=== PATIENT | female | born 1955 | race African-American/Black ===

== ENCOUNTER 2017-10-08 18:10 | Inpatient (IN) | payer MEDICARE, OTHER ==
--- NOTE | 2017-10-08 18:32 | ED Physician Chart ---
ED Chief Complaint/HPI - Patient Information Date Seen:: 10/08/17 Time Seen:: 18:10 Chief Complaint:: increasing confusion and agitation History of Present Illness:: Patient sent from her care facility for increasing agitation and confusion. Allergies:: Allergies Allergy/AdvReac Type Severity Reaction Status Date / Time No Known Allergies Allergy Verified 02/28/17 16:15 Historian:: Patient Review:: Transfer documents Reviewed ED Review of Systems - Review of Systems General/Constitutional: No fever Skin: No skin lesions Head: No headache Eyes: No loss of vision ENT: No earache Neck: No neck pain Cardio Vascular: No chest pain Pulmonary: No SOB GI: No nausea, No vomiting G/U: No dysuria Musculoskeletal: No bone or joint pain Endocrine: No polyuria, No polydipsia Psychiatric: Prior psych history Hematopoietic: No bruising Allergic/Immuno: No urticaria Neurological: No syncope ED Past Medical History - Past Medical History Past Medical History: DM, Other (lupus; insomnia; hyperlipidemia; psychosis; dysphagia; schizophrenia; major depression; transient fracture hands; anxiety; bilateral below-knee amputations) Family History: None Social History: Non Smoker, No Alcohol Surgical History: other (bilateral below-knee amputation) Psychiatricy History: Depression, Schizophrenia Medication: Reviewed Family Medical History - Family Member Mother History Unknown: Yes ED Physical Exam - Physical Examination General/Constitutional: Well-developed, well-nourished, Alert, No distress Head: Atraumatic Eyes: Lids, conjuctiva normal, PERRL Skin: Nl inspection, No rash ENMT: External ears, nose nl Other ENMT comments:: Edentulous with upper dentures Neck: No nuchal rigidity Respiratory: Nl effort/Exclusion, Clear to Auscultation Cardio Vascular: RRR GI: No tenderness/rebounding/guarding, No organomegaly : No CVA tenderness Other Extremities comments:: Bilateral below-knee amputations; contracture both hands Neuro/Psych: Alert/oriented ED Labs/Radiology/EKG Results - EKG Interpretations EKG Time:: 18:35
[2017-10-08 18:58] LABS: ALB/GLOB RATIO 1.2 (1.0-1.8); ALBUMIN 4.1 gm/dL (3.7-5.3); ALKALINE PHOSPHATASE 69 U/L (34-104); ANION GAP 14.3 (7.0-16.0); BILIRUBIN,TOTAL 0.3 mg/dL (0.3-1.0); BUN - UREA NITROGEN 13 mg/dL (7-25); CALCIUM SERUM 9.3 mg/dL (8.6-10.3); CARBON DIOXIDE 25.6 mEq/L (21.0-31.0); CHLORIDE 98 mEq/L (98-107); CHOLESTEROL 139 mg/dL (<200); CREATININE - SERUM 0.6 mg/dL (0.6-1.2); GFR AFRICAN-AMERICAN > 60.0 ml/min (>90); GFR NON AFRICAN-AMERICAN > 60.0 ml/min; GLUCOSE 92 mg/dL (70-105); HDL -HIGH DENSITY LIPOPROTEIN 62 mg/dL (23-92); POTASSIUM SERUM 3.9 mEq/L (3.5-5.1); SGOT 16 U/L (13-39); SGPT/ALT 11 U/L (7-52); SODIUM SERUM 134 mEq/L (136-145); TOTAL PROTEIN,SERUM 7.5 gm/dL (6.0-8.3); TRIGLYCERIDES 67 mg/dL (<150)
[2017-10-08 19:12] LABS: HEMATOCRIT 46.7 % (41.0-60); HEMOGLOBIN 14.7 gm/dL (12-16); MEAN CELL VOLUME 85.7 fl (81-100); MEAN CORPUSCULAR HEMOGLOBIN 26.9 pg (27.0-31.0); MEAN CORPUSCULAR HGB CONC 31.4 pg (28.0-36.0); PLATELET COUNT 357 Th/cmm (150-400); RED BLOOD COUNT 5.45 Mil/cmm (3.80-5.10); RED CELL DISTRIBUTION WIDTH 14.2 % (11.5-20.0); WHITE BLOOD COUNT 5.9 Th/cmm (4.8-10.8)
[2017-10-08 19:13] LABS: % BASOPHILS 0.7 % (0.0-2.0); % EOSINOPHILS 2.5 % (0.0-5.0); % LYMPHOCYTES 32.5 % (20.0-50.0); % MONOCYTES 13.9 % (2.0-10.0); % NEUTROPHILS 50.4 % (40.0-80.0); EOSINOPHILE ABSOLUTE 0.1 Th/cmm (0.1-0.4); LYMPHOCYTE ABSOLUTE 1.9 Th/cmm (1.5-3.0); MONOCYTE ABSOLUTE 0.8 Th/cmm (0.3-1.0); NEUTROPHILE ABSOLUTE 3.1 Th/cmm (1.8-8.0)
[2017-10-08 21:43] VITALS: BP 132/78
[2017-10-08] MEDS ORDERED: Magnesium Hydroxide (MOM) 30 mL UDC PO PRN ×2 (21:43→21:48)
[2017-10-08] MEDS ORDERED: Maalox 30 mL Cup PO PRN (21:43)
--- NOTE | 2017-10-09 09:14 | History and Physical ---
History of Present Illness - HPI Vital Signs: Last Vital Signs Temp 97.8 F 10/09/17 06:50 Pulse 69 10/09/17 06:50 Resp 18 10/09/17 06:50 BP 117/65 10/09/17 06:50 Pulse Ox 98 10/09/17 06:50 Family Medical History - Family Member Mother History Unknown: Yes - Medications Home Medications: Home Medication Medication Instructions Recorded Type Divalproex Sprinkle [Depakote 500 mg PO DAILY 02/28/17 History Sprinkle] Aspirin [Aspirin Chewable] 81 mg PO DAILY ctb 03/17/17 Rx Calcium Carbonate [Os-Kennedy] 500 mg PO TID tab 03/17/17 Rx Cholecalciferol (Vit D3) [Vitamin 5,000 iu PO DAILY tab 03/17/17 Rx D3] Divalproex Sprinkle [Depakote 500 mg PO BID ecc 03/17/17 Rx Sprinkle] Docusate Sodium [Colace] 250 mg PO DAILY sgl 03/17/17 Rx Insulin Detemir [Levemir Insulin] 29 units SUBQ QAM vial 03/17/17 Rx Lisinopril [Zestril] 40 mg PO DAILY tab 03/17/17 Rx Magnesium Hydroxide [Milk of 30 ml PO DAILY PRN udc 03/17/17 Rx Magnesia] Multivitamin [Theragran] 1 tab PO DAILY tab 03/17/17 Rx NIFEdipine [Procardia Xl] [address] 03/17/17 Rx Polyvinyl Alcohol Ophth Soln 1 drop EACH EYE BID 03/17/17 Rx [Artificial Tears Ophth Soln*] Simvastatin [Zocor] 40 mg PO QPM tab 03/17/17 Rx azaTHIOprine [Imuran] 50 mg PO DAILY tab 03/17/17 Rx metFORMIN [Glucophage] 850 mg PO TID tab 03/17/17 Rx risperiDONE [RisperDAL] 0.75 mg PO BID tab 03/17/17 Rx traZODone HCl [Desyrel*] 100 mg PO HS tab 03/17/17 Rx - Allergies Allergies/Adverse Reactions: Allergies Allergy/AdvReac Type Severity Reaction Status Date / Time No Known Allergies Allergy Verified 02/28/17 16:15 - Lab Results All Lab Results last 24 hours: Laboratory Results - last 24 hr 10/09/17 05:58 POC Glucose 92
[2017-10-09] MEDS: INSULIN ASPART SLIDING SCALE 100 UNITS/ML UNIT SUBQ SCH ×4 (10:00→21:44)
[2017-10-09] MEDS: Aspirin 81mg Chewable Tab PO SCH (10:00)
[2017-10-09] MEDS: Insulin Detemir 100 units/mL 10mL Vial SUBQ SCH (10:00)
[2017-10-09] MEDS: Multivitamin Tab PO SCH (10:00)
[2017-10-09] MEDS: NIFEdipine 30 mg ER Tab PO SCH ×2 (11:05→14:36)
[2017-10-09] MEDS: Polyvinyl Alcohol Ophth Soln 15 mL Bottle EACH EYE SCH ×2 (14:30→18:11)
--- NOTE | 2017-10-09 21:41 | History and Physical ---
History of Present Illness - HPI Chief Complaint: agitation HPI: This is 62 yr old female who is a alf resident admitted to the [facility] unit for agitation towards snf staff. Vital Signs: Last Vital Signs Temp 97.4 F 10/09/17 14:52 Pulse 72 10/09/17 14:52 Resp 20 10/09/17 14:52 BP 119/76 10/09/17 14:52 Pulse Ox 97 10/09/17 14:52 Past Medical History Other History: DM, lupus; insomnia; hyperlipidemia; psychosis; dysphagia; schizophrenia; major depression; transient fracture hands; anxiety; bilateral below-knee amputations - Past Surgical History Past Surgical History: Other (bka) Family Medical History - Family Member Mother History Unknown: Yes Social History Smoke: No Alcohol: None Drugs: None Lives: Snf - Medications Home Medications: Home Medication Medication Instructions Recorded Type Divalproex Sprinkle [Depakote 500 mg PO DAILY 02/28/17 History Sprinkle] Aspirin [Aspirin Chewable] 81 mg PO DAILY ctb 03/17/17 Rx Calcium Carbonate [Os-Kennedy] 500 mg PO TID tab 03/17/17 Rx Cholecalciferol (Vit D3) [Vitamin 5,000 iu PO DAILY tab 03/17/17 Rx D3] Divalproex Sprinkle [Depakote 500 mg PO BID ecc 03/17/17 Rx Sprinkle] Docusate Sodium [Colace] 250 mg PO DAILY sgl 03/17/17 Rx Insulin Detemir [Levemir Insulin] 29 units SUBQ QAM vial 03/17/17 Rx Lisinopril [Zestril] 40 mg PO DAILY tab 03/17/17 Rx Magnesium Hydroxide [Milk of 30 ml PO DAILY PRN udc 03/17/17 Rx Magnesia] Multivitamin [Theragran] 1 tab PO DAILY tab 03/17/17 Rx NIFEdipine [Procardia Xl] [address] 03/17/17 Rx Polyvinyl Alcohol Ophth Soln 1 drop EACH EYE BID 03/17/17 Rx [Artificial Tears Ophth Soln*] Simvastatin [Zocor] 40 mg PO QPM tab 03/17/17 Rx azaTHIOprine [Imuran] 50 mg PO DAILY tab 03/17/17 Rx metFORMIN [Glucophage] 850 mg PO TID tab 03/17/17 Rx risperiDONE [RisperDAL] 0.75 mg PO BID tab 03/17/17 Rx traZODone HCl [Desyrel*] 100 mg PO HS tab 03/17/17 Rx - Allergies Allergies/Adverse Reactions: Allergies Allergy/AdvReac Type Severity Reaction Status Date / Time No Known Allergies Allergy Verified 02/28/17 16:15 Review of Systems - Review of Systems Constitutional: Report: No Significant Eyes: Report: No Significant ENT: Report: No Significant Respiratory: Report: No Significant Cardiovascular: Report: No Significant Gastrointestinal: Report: No Significant Genitourinary: Report: No Significant Musculoskeletal: Report: No Significant Skin: Report: No Significant Neurological: Report: No Significant Physical Exam - Physical Exam HEENT: Report: Ears Nose Throat within normal limits Neck: Report: Within normal limits Cardiovascular Systems: Report: +s1/s2 noted Respiratory: Report: Breath Sounds are within normal limits Abdomen: Report: Non-tender to palpation Back: Report: Inspection of back is within normal limits. Extremities: Report: Non-tender to palpation. Skin: Report: Color of skin is within normal limits Neuro/Psych: Report: Mood affect is within normal limits - Lab Results All Lab Results last 24 hours: Laboratory Results - last 24 hr 10/09/17 10/09/17 05:58 12:18 POC Glucose 92 117 H - Assessment Assessment: DM,lupus; insomnia; hyperlipidemia; psychosis; dysphagia; schizophrenia; major depression; transient fracture hands; anxiety; bilateral below-knee amputations - Plan Plan: monitor glucose safety precuations continue current orders
--- NOTE | 2017-10-10 01:50 | Psychosocial Evaluation ---
DATE OF SERVICE: PSYCHIATRIC INITIAL EVALUATION AND MENTAL STATUS EXAM PATIENT'S AGE: 62. SEX: Female. PHYSICIAN: Rhina Dalton M.D., M.P.H. CHIEF COMPLAINT: Agitation and irritability. HISTORY OF PRESENT ILLNESS: The patient is a 62-year-old female with history of what seems to be schizoaffective disorder. The patient has been agitated and irritable in [facility]. She has not been able to follow directions and aggressive and agitated with the staff and also confused that she was transferred to the hospital. Chart reviewed and patient interviewed and discussed the patient's condition with the staff and reviewed records and labs. The patient is anxious. The patient also is confused. When I asked her about where she lives, "I live here." She also was rambling and she was not able to give me any coherent answers. She also was suspicious and paranoid and confused. PAST PSYCHIATRIC HISTORY: The patient has history of what seems to be schizoaffective disorder. The patient has been taking Depakote and Risperdal. PAST MEDICAL HISTORY: The patient is diabetic. SOCIAL HISTORY: The patient said that she is single, never and has no children. No known alcohol or street drug use. in [facility]. ALLERGIES: No known allergies. MENTAL STATUS EXAMINATION: The patient appears older than her stated age. Disheveled. Irritable mood. Flat affect. Thought processes are circumstantial and tangential with flight of ideas. The patient did not answer question regarding hallucinations or delusions, but she seems to be preoccupied and paranoid. The patient did not answer question regarding suicide or homicide. The patient is alert, but disoriented to time, place, person and situation. Impaired immediate and recent memory, but intact remote memory and she did remember her date. Poor insight and poor judgment. ASSESSMENT: PRIMARY DIAGNOSES: Schizoaffective disorder, mixed type, severe, with psychotic features. SECONDARY DIAGNOSES: Dementia, moderate to severe, with psychosis. TREATMENT PLAN: We will monitor the patient's behavior closely. We will continue Depakote and Seroquel and will adjust the dose. ESTIMATED LENGTH OF STAY: 5-7 days. THE PATIENT'S STRENGTHS AND WEAKNESSES: The patient's strength is not clear at this time. Weakness is her ineffective coping and poor judgment. AFTER DISCHARGE PLAN: Outpatient treatment and followup will continue as an outpatient. The patient also will return to [facility]. CRITERIA FOR DISCHARGE: The patient will not be suicidal and will stabilize psychotropic medications and will establish outpatient treatment plans. [facility]# [id number]
[2017-10-10] MEDS: INSULIN ASPART SLIDING SCALE 100 UNITS/ML UNIT SUBQ SCH ×4 (06:34→20:46)
[2017-10-10] MEDS: NIFEdipine 30 mg ER Tab PO SCH (09:51)
[2017-10-10] MEDS: Polyvinyl Alcohol Ophth Soln 15 mL Bottle EACH EYE SCH ×2 (09:51→17:17)
[2017-10-10] MEDS: Insulin Detemir 100 units/mL 10mL Vial SUBQ SCH (09:53)
[2017-10-10] MEDS: Aspirin 81mg Chewable Tab PO SCH (09:53)
[2017-10-10] MEDS: Multivitamin Tab PO SCH (09:53)
--- NOTE | 2017-10-10 20:06 | Progress Notes ---
DATE: Chart reviewed and the patient interviewed. Also discussed the patient's condition with the staff and reviewed records and labs. The patient continued to be extremely irritable and extremely agitated. The patient also is laughing and talking to herself. She also is delusional thinking that her money is coming to the facility and also her belongings ended "going home." She also is restless and her interaction with others is minimum. The patient also is suspicious and is paranoid. Otherwise, the patient is cooperative with her treatment and taking her medications. The patient did not sleep much last night and according to staff, she only slept 2 hours. During interview, the patient is disheveled. She is also suspicious and paranoid. TREATMENT PLAN: We will continue monitoring her behavior closely. Also, we will discontinue Risperdal and we will start the patient on Seroquel and we will monitor the dose. Also, we will continue to monitor her behavior closely. LABORATORY DATA: No new labs available, but we will monitor Depakote blood level. JOB# [id number]
--- NOTE | 2017-10-10 22:32 | Internal Medicine Prog Note ---
Internal Medicine Subjective - Subjective Service Date: 10/10/17 Patient seen and examined:: with staff Patient is:: awake Per staff patient has:: no adverse event, tolerating meds Internal Medicine Objective - Results Result Diagrams: 10/08/17 18:33 10/08/17 18:33 Recent Labs: Laboratory Last Values WBC 5.9 Th/cmm (4.8-10.8) D 10/08/17 18:33 RBC 5.45 Mil/cmm (3.80-5.10) H 10/08/17 18:33 Hgb 14.7 gm/dL (12-16) 10/08/17 18:33 Hct 46.7 % (41.0-60) 10/08/17 18:33 MCV 85.7 fl (81-100) 10/08/17 18:33 MCH 26.9 pg (27.0-31.0) L 10/08/17 18:33 MCHC Differential 31.4 pg (28.0-36.0) 10/08/17 18:33 RDW 14.2 % (11.5-20.0) 10/08/17 18:33 Plt Count 357 Th/cmm (150-400) 10/08/17 18:33 MPV 8.0 fl 10/08/17 18:33 Neutrophils % 50.4 % (40.0-80.0) 10/08/17 18:33 Lymphocytes % 32.5 % (20.0-50.0) 10/08/17 18:33 Monocytes % 13.9 % (2.0-10.0) H 10/08/17 18:33 Eosinophils % 2.5 % (0.0-5.0) 10/08/17 18:33 Basophils % 0.7 % (0.0-2.0) 10/08/17 18:33 Sodium 134 mEq/L (136-145) L 10/08/17 18:33 Potassium 3.9 mEq/L (3.5-5.1) 10/08/17 18:33 Chloride 98 mEq/L (98-107) 10/08/17 18:33 Carbon Dioxide 25.6 mEq/L (21.0-31.0) 10/08/17 18:33 Anion Gap 14.3 (7.0-16.0) 10/08/17 18:33 BUN 13 mg/dL (7-25) 10/08/17 18:33 Creatinine 0.6 mg/dL (0.6-1.2) 10/08/17 18:33 Est GFR ( Amer) > 60.0 ml/min (>90) 10/08/17 18:33 Est GFR (Non-Af Amer) > 60.0 ml/min 10/08/17 18:33 BUN/Creatinine Ratio 21.7 10/08/17 18:33 Glucose 92 mg/dL (70-105) 10/08/17 18:33 POC Glucose 75 MG/DL (70 - 105) 10/10/17 20:17 Calcium 9.3 mg/dL (8.6-10.3) 10/08/17 18:33 Total Bilirubin 0.3 mg/dL (0.3-1.0) 10/08/17 18:33 AST 16 U/L (13-39) 10/08/17 18:33 ALT 11 U/L (7-52) 10/08/17 18:33 Alkaline Phosphatase 69 U/L (34-104) 10/08/17 18:33 Total Protein 7.5 gm/dL (6.0-8.3) 10/08/17 18:33 Albumin 4.1 gm/dL (3.7-5.3) 10/08/17 18:33 Globulin 3.4 gm/dL 10/08/17 18:33 Albumin/Globulin Ratio 1.2 (1.0-1.8) 10/08/17 18:33 Triglycerides 67 mg/dL (<150) 10/08/17 18:33 Cholesterol 139 mg/dL (<200) 10/08/17 18:33 LDL Cholesterol Direct 75 mg/dL (75-193) 10/08/17 18:33 HDL Cholesterol 62 mg/dL (23-92) 10/08/17 18:33 TSH 1.23 uIU/ml (0.34-5.60) 10/08/17 18:33 RPR NONREACTIVE (NONREACTIVE) 10/08/17 18:33 - Physical Exam Vitals and I&O: Vital Signs Temp 97.9 F 10/10/17 21:44 Pulse 76 10/10/17 21:44 Resp 18 10/10/17 21:44 BP 129/76 12/29/17 21:44 Pulse Ox 97 10/10/17 14:00 Intake & Output 10/10/17 10/10/17 10/11/17 06:59 18:59 06:59 Intake Total 120 1200 120 Balance 120 1200 120 Intake: Oral 120 1200 120 Other: # Voids 3 3 1 Active Medications: Current Medications Al Hydrox/Mg Hydrox/Simethicone (Maalox) 30 ml PO Q6H PRN PRN Reason: Dyspepsia Stop: 12/07/17 21:42 Artificial Tears (Artificial Tears Ophth Soln) 1 drop EACH EYE BID [facility] Stop: 12/08/17 08:59 Last Admin: 10/10/17 17:17 Dose: 1 drop Aspirin (Aspirin Chewable) 81 mg PO DAILY [facility] Stop: 12/08/17 08:59 Last Admin: 10/10/17 09:53 Dose: 81 mg Calcium Carbonate (Os-Kennedy) 500 mg PO TID [facility] Stop: 12/08/17 08:59 Last Admin: 10/10/17 20:45 Dose: 500 mg Cholecalciferol (Vitamin D3) 2,000 iu PO DAILY [facility] Stop: 12/08/17 08:59 Last Admin: 10/10/17 09:52 Dose: 2,000 iu Divalproex Sodium (Depakote Sprinkle) 500 mg PO BID [facility] PRN Reason: Protocol Stop: 12/08/17 08:59 Last Admin: 10/10/17 17:17 Dose: 500 mg Docusate Sodium (Colace) 250 mg PO DAILY [facility] Stop: 12/08/17 08:59 Last Admin: 10/10/17 09:52 Dose: Not Given Insulin Aspart (Novolog Insulin Sliding Scale) 0 units SUBQ ACHS [facility] PRN Reason: Protocol Stop: 12/08/17 07:29 Last Admin: 10/10/17 20:46 Dose: Not Given Insulin Detemir (Levemir Insulin) 29 units SUBQ QAM [facility] PRN Reason: Protocol Stop: 12/08/17 08:59 Last Admin: 10/10/17 09:53 Dose: Not Given Lisinopril (Zestril) 40 mg PO DAILY [facility] Stop: 12/08/17 08:59 Last Admin: 10/10/17 09:52 Dose: 40 mg Lorazepam (Ativan) 1 mg PO Q6H PRN; Protocol PRN Reason: Anxiety/Agitation Stop: 12/07/17 21:42 Magnesium Hydroxide (Milk Of Magnesia) 30 ml PO DAILY PRN PRN Reason: GI DISTRESS Stop: 12/07/17 21:47 Metformin HCl (Glucophage) 850 mg PO TID [facility] Stop: 12/08/17 08:59 Last Admin: 10/10/17 20:44 Dose: 850 mg Multivitamins/Vitamin C (Theragran) 1 tab PO DAILY [facility] Stop: 12/08/17 08:59 Last Admin: 10/10/17 09:53 Dose: 1 tab Nifedipine (Procardia Xl) 60 mg PO DAILY [facility] Stop: 12/08/17 08:59 Last Admin: 10/10/17 09:51 Dose: 60 mg Quetiapine Fumarate (Seroquel) 25 mg PO BID [facility] PRN Reason: Protocol Stop: 12/09/17 08:59 Quetiapine Fumarate (Seroquel) 50 mg PO HS [facility] PRN Reason: Protocol Stop: 12/09/17 20:59 Simvastatin (Zocor) 40 mg PO QPM [facility] PRN Reason: Protocol Stop: 12/08/17 16:59 Last Admin: 10/10/17 17:17 Dose: 40 mg Trazodone HCl (Desyrel) 100 mg PO HS [facility] PRN Reason: Protocol Stop: 12/08/17 20:59 Last Admin: 10/10/17 20:45 Dose: 100 mg General: alert HEENT: NC/AT, PERRLA Neck: Supple Lungs: CTAB Extremities: excoriation Neurological: no change Internal Medicine Assmt/Plan - Assessment Assessment: DM,lupus; insomnia; hyperlipidemia; psychosis; dysphagia; schizophrenia; major depression; transient fracture hands; anxiety; bilateral below-knee amputations - Plan Plan: monitor glucose safety precuations continue current orders
[2017-10-11] MEDS: INSULIN ASPART SLIDING SCALE 100 UNITS/ML UNIT SUBQ SCH ×4 (06:49→20:28)
[2017-10-11] MEDS: Polyvinyl Alcohol Ophth Soln 15 mL Bottle EACH EYE SCH ×2 (08:22→16:42)
[2017-10-11] MEDS: NIFEdipine 30 mg ER Tab PO SCH (08:23)
[2017-10-11] MEDS: Aspirin 81mg Chewable Tab PO SCH (08:25)
[2017-10-11] MEDS: Multivitamin Tab PO SCH (08:25)
[2017-10-11] MEDS: Insulin Detemir 100 units/mL 10mL Vial SUBQ SCH (08:30)
--- NOTE | 2017-10-11 20:47 | Progress Notes ---
DATE: 10/11/2017 SUBJECTIVE: The patient is currently in the hospital, noted to be irritable, agitated, laughing to self, talking to self. The patient wants to go home earlier on her wheelchair. The patient believes that her money is coming to the family, demanding to leave right now. She originally presented to the hospital due to agitation and irritability. It seems that she was psychotic. Medications were reviewed including dosages and frequencies, sleeping, roller billet mill awakenings, appetite with prompting. ASSESSMENT: The patient remains symptomatic, not safe for a lower level of care, still with behavioral disturbances. PLAN: We will continue to monitor and make appropriate medication adjustments. [facility]# [id number]
[2017-10-12] MEDS: INSULIN ASPART SLIDING SCALE 100 UNITS/ML UNIT SUBQ SCH ×4 (07:00→20:12)
[2017-10-12] MEDS: Aspirin 81mg Chewable Tab PO SCH (08:33)
[2017-10-12] MEDS: Multivitamin Tab PO SCH (08:33)
[2017-10-12] MEDS: NIFEdipine 30 mg ER Tab PO SCH (08:35)
[2017-10-12] MEDS: Polyvinyl Alcohol Ophth Soln 15 mL Bottle EACH EYE SCH ×2 (08:42→18:00)
[2017-10-12] MEDS: Insulin Detemir 100 units/mL 10mL Vial SUBQ SCH (09:00)
--- NOTE | 2017-10-12 12:56 | General Progress Note ---
Subjective - Review of Systems Events since last encounter: patient still psychotic irritable Objective - Results Result Diagrams: 10/08/17 18:33 10/08/17 18:33 Recent Labs: Laboratory Last Values WBC 5.9 Th/cmm (4.8-10.8) D 10/08/17 18:33 RBC 5.45 Mil/cmm (3.80-5.10) H 10/08/17 18:33 Hgb 14.7 gm/dL (12-16) 10/08/17 18:33 Hct 46.7 % (41.0-60) 10/08/17 18:33 MCV 85.7 fl (81-100) 10/08/17 18:33 MCH 26.9 pg (27.0-31.0) L 10/08/17 18:33 MCHC Differential 31.4 pg (28.0-36.0) 10/08/17 18:33 RDW 14.2 % (11.5-20.0) 10/08/17 18:33 Plt Count 357 Th/cmm (150-400) 10/08/17 18:33 MPV 8.0 fl 10/08/17 18:33 Neutrophils % 50.4 % (40.0-80.0) 10/08/17 18:33 Lymphocytes % 32.5 % (20.0-50.0) 10/08/17 18:33 Monocytes % 13.9 % (2.0-10.0) H 10/08/17 18:33 Eosinophils % 2.5 % (0.0-5.0) 10/08/17 18:33 Basophils % 0.7 % (0.0-2.0) 10/08/17 18:33 Sodium 134 mEq/L (136-145) L 10/08/17 18:33 Potassium 3.9 mEq/L (3.5-5.1) 10/08/17 18:33 Chloride 98 mEq/L (98-107) 10/08/17 18:33 Carbon Dioxide 25.6 mEq/L (21.0-31.0) 10/08/17 18:33 Anion Gap 14.3 (7.0-16.0) 10/08/17 18:33 BUN 13 mg/dL (7-25) 10/08/17 18:33 Creatinine 0.6 mg/dL (0.6-1.2) 10/08/17 18:33 Est GFR ( Amer) > 60.0 ml/min (>90) 10/08/17 18:33 Est GFR (Non-Af Amer) > 60.0 ml/min 10/08/17 18:33 BUN/Creatinine Ratio 21.7 10/08/17 18:33 Glucose 92 mg/dL (70-105) 10/08/17 18:33 POC Glucose 66 MG/DL (70 - 105) L 10/12/17 06:15 Calcium 9.3 mg/dL (8.6-10.3) 10/08/17 18:33 Total Bilirubin 0.3 mg/dL (0.3-1.0) 10/08/17 18:33 AST 16 U/L (13-39) 10/08/17 18:33 ALT 11 U/L (7-52) 10/08/17 18:33 Alkaline Phosphatase 69 U/L (34-104) 10/08/17 18:33 Total Protein 7.5 gm/dL (6.0-8.3) 10/08/17 18:33 Albumin 4.1 gm/dL (3.7-5.3) 10/08/17 18:33 Globulin 3.4 gm/dL 10/08/17 18:33 Albumin/Globulin Ratio 1.2 (1.0-1.8) 10/08/17 18:33 Triglycerides 67 mg/dL (<150) 10/08/17 18:33 Cholesterol 139 mg/dL (<200) 10/08/17 18:33 LDL Cholesterol Direct 75 mg/dL (75-193) 10/08/17 18:33 HDL Cholesterol 62 mg/dL (23-92) 10/08/17 18:33 TSH 1.23 uIU/ml (0.34-5.60) 10/08/17 18:33 RPR NONREACTIVE (NONREACTIVE) 10/08/17 18:33 - Physical Exam Vitals and I&O: Vital Signs Temp 97.9 F 10/12/17 06:34 Pulse 77 10/12/17 08:35 Resp 18 10/12/17 06:34 BP 125/76 10/12/17 08:35 Pulse Ox 98 10/12/17 06:34 Intake & Output 10/11/17 10/12/17 10/12/17 18:59 06:59 18:59 Intake Total 1600 120 Balance 1600 120 Intake: Oral 1600 120 Other: # Voids 4 3 # Bowel Movements 0 Stool Characteristics Soft Active Medications: Current Medications Al Hydrox/Mg Hydrox/Simethicone (Maalox) 30 ml PO Q6H PRN PRN Reason: Dyspepsia Stop: 12/07/17 21:42 Artificial Tears (Artificial Tears Ophth Soln) 1 drop EACH EYE BID [facility] Stop: 12/08/17 08:59 Last Admin: 10/12/17 08:42 Dose: Not Given Aspirin (Aspirin Chewable) 81 mg PO DAILY [facility] Stop: 12/08/17 08:59 Last Admin: 10/12/17 08:33 Dose: 81 mg Calcium Carbonate (Os-Kennedy) 500 mg PO TID [facility] Stop: 12/08/17 08:59 Last Admin: 10/12/17 08:34 Dose: 500 mg Cholecalciferol (Vitamin D3) 2,000 iu PO DAILY [facility] Stop: 12/08/17 08:59 Last Admin: 10/12/17 08:34 Dose: 2,000 iu Divalproex Sodium (Depakote Sprinkle) 500 mg PO BID [facility] PRN Reason: Protocol Stop: 12/08/17 08:59 Last Admin: 10/12/17 08:33 Dose: Not Given Docusate Sodium (Colace) 250 mg PO DAILY [facility] Stop: 12/08/17 08:59 Last Admin: 10/12/17 08:33 Dose: Not Given Insulin Aspart (Novolog Insulin Sliding Scale) 0 units SUBQ ACHS [facility] PRN Reason: Protocol Stop: 12/08/17 07:29 Last Admin: 10/12/17 11:39 Dose: 2 units Insulin Detemir (Levemir Insulin) 29 units SUBQ QAM [facility] PRN Reason: Protocol Stop: 12/08/17 08:59 Last Admin: 10/11/17 08:30 Dose: Not Given Lisinopril (Zestril) 40 mg PO DAILY [facility] Stop: 12/08/17 08:59 Last Admin: 10/12/17 08:34 Dose: 40 mg Lorazepam (Ativan) 1 mg PO Q6H PRN; Protocol PRN Reason: Anxiety/Agitation Stop: 12/07/17 21:42 Magnesium Hydroxide (Milk Of Magnesia) 30 ml PO DAILY PRN PRN Reason: GI DISTRESS Stop: 12/07/17 21:47 Metformin HCl (Glucophage) 850 mg PO TID [facility] Stop: 12/08/17 08:59 Last Admin: 10/12/17 08:33 Dose: Not Given Multivitamins/Vitamin C (Theragran) 1 tab PO DAILY [facility] Stop: 12/08/17 08:59 Last Admin: 10/12/17 08:33 Dose: 1 tab Nifedipine (Procardia Xl) 60 mg PO DAILY [facility] Stop: 12/08/17 08:59 Last Admin: 10/12/17 08:35 Dose: 60 mg Quetiapine Fumarate (Seroquel) 25 mg PO BID [facility] PRN Reason: Protocol Stop: 12/09/17 08:59 Last Admin: 10/12/17 08:33 Dose: 25 mg Quetiapine Fumarate (Seroquel) 50 mg PO HS [facility] PRN Reason: Protocol Stop: 12/09/17 20:59 Last Admin: 10/11/17 20:25 Dose: 50 mg Simvastatin (Zocor) 40 mg PO QPM [facility] PRN Reason: Protocol Stop: 12/08/17 16:59 Last Admin: 10/11/17 16:13 Dose: 40 mg Trazodone HCl (Desyrel) 100 mg PO HS [facility] PRN Reason: Protocol Stop: 12/08/17 20:59 Last Admin: 10/11/17 20:27 Dose: 100 mg
--- NOTE | 2017-10-12 18:02 | Progress Notes ---
DATE: 10/11/2017 SUBJECTIVE: The patient was seen in her room lying in bed. The patient is a poor historian due to medical condition. The patient appears to be guarded at this time. Otherwise, appears to be in no acute distress. OBJECTIVE: VITAL SIGNS: Temperature 97.2, heart rate 89, blood pressure 113/52, respirations 18, 97% on room air. HEENT: Head is atraumatic and normocephalic. Eyes: Bilateral conjunctivae are clear. Bilateral pupils are equally round and reactive. NECK: Supple. No JVD. CARDIOVASCULAR: S1 and S2, without murmur. PULMONARY: Clear to auscultation. GASTROINTESTINAL: Soft and nontender without guarding. Positive bowel sounds. MUSCULOSKELETAL: No clubbing, no cyanosis noted. ASSESSMENT: 1. Schizoaffective disorder. 2. Dementia. 3. Diabetes mellitus. 4. Hyperlipidemia. 5. Lupus. 6. Bilateral below knee amputation. PLAN: We will keep the patient inpatient in the Psychiatric Unit. We will follow up with a psychiatrist to monitor the patient's condition and behavior. Treatment plans were discussed with the patient's nurses. Treatment plans were discussed with Dr. Sullivan. JOB# [id number]
--- NOTE | 2017-10-12 22:36 | Progress Notes ---
DATE: 10/12/2017 SUBJECTIVE: The patient seen on 10/12/2017. The patient is currently in a wheelchair, not really following directions, agitated, confused, not answering any questions today. The patient is rambling, still nonsensical statements, somewhat restless on exam. Not a very good historian. MEDICATIONS: Reviewed. ASSESSMENT: The patient remains symptomatic, still with psychosis, delusional, confusion. The patient is sleeping fairly well with early intervention school psychologist awakenings. PLAN: We will continue to monitor given ongoing behavioral disturbances. She is not safe for discharge. JOB# [id number]
[2017-10-13] MEDS: INSULIN ASPART SLIDING SCALE 100 UNITS/ML UNIT SUBQ SCH ×4 (06:41→20:11)
[2017-10-13] MEDS: Insulin Detemir 100 units/mL 10mL Vial SUBQ SCH (09:00)
--- NOTE | 2017-10-13 09:19 | Progress Notes ---
DATE: 10/13/2017 SUBJECTIVE: The patient is currently in the hospital, history of schizoaffective, agitated, not following directions, aggressive. The patient remains confused, disoriented, making nonsensical statements. States she is going to leave today, talking about polar bears, still rambling, needing a lot of redirection and prompting, eating with some prompting, sleeping with technical sales advisor awakenings, not a good historian. Medications reviewed. No side effects noted. ASSESSMENT: The patient remains symptomatic, confused, disoriented. PLAN: We will continue to monitor. The patient is not safe for discharge. Still with behavioral disturbances. Not safe for a lower level of care. JOB# [id number]
[2017-10-13] MEDS: Aspirin 81mg Chewable Tab PO SCH (09:47)
[2017-10-13] MEDS: NIFEdipine 30 mg ER Tab PO SCH (09:49)
[2017-10-13] MEDS: Multivitamin Tab PO SCH (09:50)
[2017-10-13] MEDS: Polyvinyl Alcohol Ophth Soln 15 mL Bottle EACH EYE SCH ×2 (10:00→17:18)
--- NOTE | 2017-10-13 13:35 | General Progress Note ---
Subjective - Review of Systems Events since last encounter: patient remains confused disoriented Objective - Results Result Diagrams: 10/08/17 18:33 10/08/17 18:33 Recent Labs: Laboratory Last Values WBC 5.9 Th/cmm (4.8-10.8) D 10/08/17 18:33 RBC 5.45 Mil/cmm (3.80-5.10) H 10/08/17 18:33 Hgb 14.7 gm/dL (12-16) 10/08/17 18:33 Hct 46.7 % (41.0-60) 10/08/17 18:33 MCV 85.7 fl (81-100) 10/08/17 18:33 MCH 26.9 pg (27.0-31.0) L 10/08/17 18:33 MCHC Differential 31.4 pg (28.0-36.0) 10/08/17 18:33 RDW 14.2 % (11.5-20.0) 10/08/17 18:33 Plt Count 357 Th/cmm (150-400) 10/08/17 18:33 MPV 8.0 fl 10/08/17 18:33 Neutrophils % 50.4 % (40.0-80.0) 10/08/17 18:33 Lymphocytes % 32.5 % (20.0-50.0) 10/08/17 18:33 Monocytes % 13.9 % (2.0-10.0) H 10/08/17 18:33 Eosinophils % 2.5 % (0.0-5.0) 10/08/17 18:33 Basophils % 0.7 % (0.0-2.0) 10/08/17 18:33 Sodium 134 mEq/L (136-145) L 10/08/17 18:33 Potassium 3.9 mEq/L (3.5-5.1) 10/08/17 18:33 Chloride 98 mEq/L (98-107) 10/08/17 18:33 Carbon Dioxide 25.6 mEq/L (21.0-31.0) 10/08/17 18:33 Anion Gap 14.3 (7.0-16.0) 10/08/17 18:33 BUN 13 mg/dL (7-25) 10/08/17 18:33 Creatinine 0.6 mg/dL (0.6-1.2) 10/08/17 18:33 Est GFR ( Amer) > 60.0 ml/min (>90) 10/08/17 18:33 Est GFR (Non-Af Amer) > 60.0 ml/min 10/08/17 18:33 BUN/Creatinine Ratio 21.7 10/08/17 18:33 Glucose 92 mg/dL (70-105) 10/08/17 18:33 POC Glucose 66 MG/DL (70 - 105) L 10/13/17 05:52 Calcium 9.3 mg/dL (8.6-10.3) 10/08/17 18:33 Total Bilirubin 0.3 mg/dL (0.3-1.0) 10/08/17 18:33 AST 16 U/L (13-39) 10/08/17 18:33 ALT 11 U/L (7-52) 10/08/17 18:33 Alkaline Phosphatase 69 U/L (34-104) 10/08/17 18:33 Total Protein 7.5 gm/dL (6.0-8.3) 10/08/17 18:33 Albumin 4.1 gm/dL (3.7-5.3) 10/08/17 18:33 Globulin 3.4 gm/dL 10/08/17 18:33 Albumin/Globulin Ratio 1.2 (1.0-1.8) 10/08/17 18:33 Triglycerides 67 mg/dL (<150) 10/08/17 18:33 Cholesterol 139 mg/dL (<200) 10/08/17 18:33 LDL Cholesterol Direct 75 mg/dL (75-193) 10/08/17 18:33 HDL Cholesterol 62 mg/dL (23-92) 10/08/17 18:33 TSH 1.23 uIU/ml (0.34-5.60) 10/08/17 18:33 RPR NONREACTIVE (NONREACTIVE) 10/08/17 18:33 - Physical Exam Vitals and I&O: Vital Signs Temp 97.1 F 10/13/17 06:21 Pulse 83 10/13/17 06:21 Resp 18 10/13/17 06:21 BP 134/65 10/13/17 06:21 Pulse Ox 100 10/13/17 06:21 Intake & Output 10/12/17 10/13/17 10/13/17 18:59 06:59 18:59 Intake Total 1200 120 Balance 1200 120 Intake: Oral 1200 120 Other: # Voids 3 3 Active Medications: Current Medications Al Hydrox/Mg Hydrox/Simethicone (Maalox) 30 ml PO Q6H PRN PRN Reason: Dyspepsia Stop: 12/07/17 21:42 Artificial Tears (Artificial Tears Ophth Soln) 1 drop EACH EYE BID [facility] Stop: 12/08/17 08:59 Last Admin: 10/13/17 10:00 Dose: Not Given Aspirin (Aspirin Chewable) 81 mg PO DAILY [facility] Stop: 12/08/17 08:59 Last Admin: 10/13/17 09:47 Dose: Not Given Calcium Carbonate (Os-Kennedy) 500 mg PO TID [facility] Stop: 12/08/17 08:59 Last Admin: 10/13/17 09:52 Dose: Not Given Cholecalciferol (Vitamin D3) 2,000 iu PO DAILY [facility] Stop: 12/08/17 08:59 Last Admin: 10/13/17 09:52 Dose: Not Given Divalproex Sodium (Depakote Sprinkle) 500 mg PO BID [facility] PRN Reason: Protocol Stop: 12/08/17 08:59 Last Admin: 10/13/17 09:42 Dose: 500 mg Docusate Sodium (Colace) 250 mg PO DAILY [facility] Stop: 12/08/17 08:59 Last Admin: 10/13/17 09:52 Dose: Not Given Insulin Aspart (Novolog Insulin Sliding Scale) 0 units SUBQ ACHS [facility] PRN Reason: Protocol Stop: 12/08/17 07:29 Last Admin: 10/13/17 12:37 Dose: Not Given Insulin Detemir (Levemir Insulin) 29 units SUBQ QAM [facility] PRN Reason: Protocol Stop: 12/08/17 08:59 Last Admin: 10/13/17 09:00 Dose: Not Given Lisinopril (Zestril) 40 mg PO DAILY [facility] Stop: 12/08/17 08:59 Last Admin: 10/13/17 09:48 Dose: Not Given Lorazepam (Ativan) 1 mg PO Q6H PRN; Protocol PRN Reason: Anxiety/Agitation Stop: 12/07/17 21:42 Magnesium Hydroxide (Milk Of Magnesia) 30 ml PO DAILY PRN PRN Reason: GI DISTRESS Stop: 12/07/17 21:47 Metformin HCl (Glucophage) 850 mg PO TID [facility] Stop: 12/08/17 08:59 Last Admin: 10/13/17 09:48 Dose: Not Given Multivitamins/Vitamin C (Theragran) 1 tab PO DAILY [facility] Stop: 12/08/17 08:59 Last Admin: 10/13/17 09:50 Dose: Not Given Nifedipine (Procardia Xl) 60 mg PO DAILY [facility] Stop: 12/08/17 08:59 Last Admin: 10/13/17 09:49 Dose: Not Given Quetiapine Fumarate (Seroquel) 25 mg PO BID [facility] PRN Reason: Protocol Stop: 12/09/17 08:59 Last Admin: 10/13/17 09:46 Dose: Not Given Quetiapine Fumarate (Seroquel) 50 mg PO HS [facility] PRN Reason: Protocol Stop: 12/09/17 20:59 Last Admin: 10/12/17 20:13 Dose: 50 mg Simvastatin (Zocor) 40 mg PO QPM [facility] PRN Reason: Protocol Stop: 12/08/17 16:59 Last Admin: 10/12/17 17:35 Dose: 40 mg Trazodone HCl (Desyrel) 100 mg PO HS [facility] PRN Reason: Protocol Stop: 12/08/17 20:59 Last Admin: 10/12/17 20:12 Dose: 100 mg General: No acute distress HEENT: Atraumatic Neck: Supple, JVD, Thyromegaly Cardiovascular: Regular rate, Normal S1, Normal S2 Lungs: Clear to auscultation Assessment/Plan - Problem List Patient Problems: All Active Problems Dementia (Acute) F03.90 Diabetes (Acute) E11.9 Hyperlipidemia (Acute) E78.5 Lupus (Acute) L93.0 Schizophrenia (Acute) F20.9 Status post bilateral below knee amputation (Acute) Z89.512, Z89.511 - Plan Plan: as per psych will monitor Nutritional Asmnt/Malnutr-PDOC - Dietary Evaluation Malnutrition Findings (Please click <Entered> for more info): Nutritional Asmnt/Malnutrition Start: 10/13/17 10: 20 Text: Status: Complete Freq: Document 10/13/17 10:20 MMULHERN (Rec: 10/13/17 10:44 [email or web address]) Nutritional Asmnt/Malnutrition Patient General Information Nutritional Screening Moderate Risk Diagnosis Psychosis NOS (Reason for visit) Pertinent Medical Hx/Surgical Hx DM, Lupus, insomnia, hyperlipidemia, psychosis, dysphagia, schizophrenia, major depression, transient fracture hands, anxiety, Bilateral Below-knee- amputations Subjective Information Patient was admitted from SNF. Patient in wheelchair d/t bilateral BKA. Patient eating lunch at time of visit. Current Diet Order/ Nutrition Support CCHO, ARACELY with chipped meat and thin liquids Patient / S.O Not Indicated Pertinent Medications maalox, Os-kennedy, Vitamin D3, Colace, Novolog, Levemir, MOM, Metformin, Theragran Pertinent Labs (10/08) Na 134, POC Glucose 66 -135 Nutritional Hx/Data Height 1.22 m Height (Calculated Centimeters) 121.9 Current Weight (lbs) 44.452 kg Weight (Calculated Kilograms) 44.5 Weight (Calculated Grams) 29757.1 [place] Body Weight unable to calculate without height before amputation Body Mass Index (BMI) 29.9 Weight Status Overweight GI Symptoms GI Symptoms None Last BM NOne noted since admission Difficult in: None Food Allergies No Cultural/Ethnic/Sikh Belief None indicated Usual diet at home Unknown Skin Integrity/Comment: Krzysztof Solano 18 Current %PO Good (75-100%) Estimated Nutritional Goals BEE in Kcals: Using Current wt Calories/Kcals/Kg 44.5kg Current body Weight Kcals Calculated ~9472-5127 kcal/day Protein: Using Current wt Protein g/k-1.2 gm/kg Protein Calculated 45-55 gm/day Fluid: ml ~0767-4196 ml/day (30-35 ml/kg ) Nutritional Problem 1. Problem Problem Altered nutrition related lab values related to Etiology 2 episodes of hypoglycemia, on insulin Signs/Symptoms: aeb POC glucose 66, 66 Intervention/Recommendation Comments 1. Continue 60 gm CCHO, ARACELY diet with chopped meats as tolerated by patient. 2. MD to continue to modify insulin regimen to prevent hypoglycemic episodes. Expected Outcomes/Goals Expected Outcomes/Goals Oral intake >75% of meals, Na and glucose normalizes, maintains skin integrity
[2017-10-14] MEDS: INSULIN ASPART SLIDING SCALE 100 UNITS/ML UNIT SUBQ SCH ×3 (06:35→20:22)
[2017-10-14] MEDS: NIFEdipine 30 mg ER Tab PO SCH (08:16)
[2017-10-14] MEDS: Aspirin 81mg Chewable Tab PO SCH (08:18)
[2017-10-14] MEDS: Insulin Detemir 100 units/mL 10mL Vial SUBQ SCH (08:38)
[2017-10-14] MEDS: Multivitamin Tab PO SCH (08:39)
[2017-10-14] MEDS: Polyvinyl Alcohol Ophth Soln 15 mL Bottle EACH EYE SCH (08:39)
--- NOTE | 2017-10-14 10:50 | Internal Medicine Prog Note ---
Internal Medicine Subjective - Subjective Service Date: 10/14/17 Patient is:: awake Per staff patient has:: no adverse event, tolerating meds Internal Medicine Objective - Results Result Diagrams: 10/08/17 18:33 10/08/17 18:33 Recent Labs: Laboratory Last Values WBC 5.9 Th/cmm (4.8-10.8) D 10/08/17 18:33 RBC 5.45 Mil/cmm (3.80-5.10) H 10/08/17 18:33 Hgb 14.7 gm/dL (12-16) 10/08/17 18:33 Hct 46.7 % (41.0-60) 10/08/17 18:33 MCV 85.7 fl (81-100) 10/08/17 18:33 MCH 26.9 pg (27.0-31.0) L 10/08/17 18:33 MCHC Differential 31.4 pg (28.0-36.0) 10/08/17 18:33 RDW 14.2 % (11.5-20.0) 10/08/17 18:33 Plt Count 357 Th/cmm (150-400) 10/08/17 18:33 MPV 8.0 fl 10/08/17 18:33 Neutrophils % 50.4 % (40.0-80.0) 10/08/17 18:33 Lymphocytes % 32.5 % (20.0-50.0) 10/08/17 18:33 Monocytes % 13.9 % (2.0-10.0) H 10/08/17 18:33 Eosinophils % 2.5 % (0.0-5.0) 10/08/17 18:33 Basophils % 0.7 % (0.0-2.0) 10/08/17 18:33 Sodium 134 mEq/L (136-145) L 10/08/17 18:33 Potassium 3.9 mEq/L (3.5-5.1) 10/08/17 18:33 Chloride 98 mEq/L (98-107) 10/08/17 18:33 Carbon Dioxide 25.6 mEq/L (21.0-31.0) 10/08/17 18:33 Anion Gap 14.3 (7.0-16.0) 10/08/17 18:33 BUN 13 mg/dL (7-25) 10/08/17 18:33 Creatinine 0.6 mg/dL (0.6-1.2) 10/08/17 18:33 Est GFR ( Amer) > 60.0 ml/min (>90) 10/08/17 18:33 Est GFR (Non-Af Amer) > 60.0 ml/min 10/08/17 18:33 BUN/Creatinine Ratio 21.7 10/08/17 18:33 Glucose 92 mg/dL (70-105) 10/08/17 18:33 POC Glucose 69 MG/DL (70 - 105) L 10/14/17 07:57 Calcium 9.3 mg/dL (8.6-10.3) 10/08/17 18:33 Total Bilirubin 0.3 mg/dL (0.3-1.0) 10/08/17 18:33 AST 16 U/L (13-39) 10/08/17 18:33 ALT 11 U/L (7-52) 10/08/17 18:33 Alkaline Phosphatase 69 U/L (34-104) 10/08/17 18:33 Total Protein 7.5 gm/dL (6.0-8.3) 10/08/17 18:33 Albumin 4.1 gm/dL (3.7-5.3) 10/08/17 18:33 Globulin 3.4 gm/dL 10/08/17 18:33 Albumin/Globulin Ratio 1.2 (1.0-1.8) 10/08/17 18:33 Triglycerides 67 mg/dL (<150) 10/08/17 18:33 Cholesterol 139 mg/dL (<200) 10/08/17 18:33 LDL Cholesterol Direct 75 mg/dL (75-193) 10/08/17 18:33 HDL Cholesterol 62 mg/dL (23-92) 10/08/17 18:33 TSH 1.23 uIU/ml (0.34-5.60) 10/08/17 18:33 RPR NONREACTIVE (NONREACTIVE) 10/08/17 18:33 - Physical Exam Vitals and I&O: Vital Signs Temp 97.9 F 10/14/17 05:57 Pulse 81 10/14/17 08:17 Resp 20 10/14/17 05:57 BP 134/62 10/14/17 08:17 Pulse Ox 98 10/14/17 05:57 Intake & Output 10/13/17 10/14/17 10/14/17 18:59 06:59 18:59 Intake Total 975 360 Output Total 1 Balance 974 360 Intake: Oral 975 360 Output: Stool 1 Other: # Voids 3 2 # Bowel Movements 0 Active Medications: Current Medications Al Hydrox/Mg Hydrox/Simethicone (Maalox) 30 ml PO Q6H PRN PRN Reason: Dyspepsia Stop: 12/07/17 21:42 Artificial Tears (Artificial Tears Ophth Soln) 1 drop EACH EYE BID [facility] Stop: 12/08/17 08:59 Last Admin: 10/14/17 08:39 Dose: Not Given Aspirin (Aspirin Chewable) 81 mg PO DAILY [facility] Stop: 12/08/17 08:59 Last Admin: 10/14/17 08:18 Dose: 81 mg Calcium Carbonate (Os-Abeba) 500 mg PO TID [facility] Stop: 12/08/17 08:59 Last Admin: 10/14/17 08:17 Dose: 500 mg Cholecalciferol (Vitamin D3) 2,000 iu PO DAILY [facility] Stop: 12/08/17 08:59 Last Admin: 10/14/17 08:18 Dose: 2,000 iu Divalproex Sodium (Depakote Sprinkle) 500 mg PO BID [facility] PRN Reason: Protocol Stop: 12/08/17 08:59 Last Admin: 10/14/17 08:38 Dose: Not Given Docusate Sodium (Colace) 250 mg PO DAILY [facility] Stop: 12/08/17 08:59 Last Admin: 10/14/17 08:39 Dose: Not Given Insulin Aspart (Novolog Insulin Sliding Scale) 0 units SUBQ ACHS [facility] PRN Reason: Protocol Stop: 12/08/17 07:29 Last Admin: 10/14/17 06:35 Dose: Not Given Insulin Detemir (Levemir Insulin) 29 units SUBQ QAM [facility] PRN Reason: Protocol Stop: 12/08/17 08:59 Last Admin: 10/14/17 08:38 Dose: Not Given Lisinopril (Zestril) 40 mg PO DAILY [facility] Stop: 12/08/17 08:59 Last Admin: 10/14/17 08:17 Dose: 40 mg Lorazepam (Ativan) 1 mg PO Q6H PRN; Protocol PRN Reason: Anxiety/Agitation Stop: 12/07/17 21:42 Magnesium Hydroxide (Milk Of Magnesia) 30 ml PO DAILY PRN PRN Reason: GI DISTRESS Stop: 12/07/17 21:47 Metformin HCl (Glucophage) 850 mg PO TID [facility] Stop: 12/08/17 08:59 Last Admin: 10/14/17 08:18 Dose: 850 mg Multivitamins/Vitamin C (Theragran) 1 tab PO DAILY [facility] Stop: 12/08/17 08:59 Last Admin: 10/14/17 08:39 Dose: Not Given Nifedipine (Procardia Xl) 60 mg PO DAILY [facility] Stop: 12/08/17 08:59 Last Admin: 10/14/17 08:16 Dose: 60 mg Quetiapine Fumarate (Seroquel) 25 mg PO BID [facility] PRN Reason: Protocol Stop: 12/09/17 08:59 Last Admin: 10/14/17 08:16 Dose: 25 mg Quetiapine Fumarate (Seroquel) 50 mg PO HS [facility] PRN Reason: Protocol Stop: 12/09/17 20:59 Last Admin: 10/13/17 20:10 Dose: 50 mg Simvastatin (Zocor) 40 mg PO QPM [facility] PRN Reason: Protocol Stop: 12/08/17 16:59 Last Admin: 10/13/17 17:18 Dose: 40 mg Trazodone HCl (Desyrel) 100 mg PO HS [facility] PRN Reason: Protocol Stop: 12/08/17 20:59 Last Admin: 10/13/17 20:10 Dose: 100 mg General: alert HEENT: NC/AT, PERRLA Neck: Supple Lungs: CTAB Extremities: excoriation Neurological: no change Internal Medicine Assmt/Plan - Assessment Assessment: DM,lupus; insomnia; hyperlipidemia; psychosis; dysphagia; schizophrenia; major depression; transient fracture hands; anxiety; bilateral below-knee amputations - Plan Plan: monitor glucose safety precuations continue current orders Nutritional Asmnt/Malnutr-PDOC - Dietary Evaluation Malnutrition Findings (Please click <Entered> for more info): Nutritional Asmnt/Malnutrition Start: 10/13/17 10: 20 Text: Status: Complete Freq: Document 10/13/17 10:20 [email or web address] (Rec: 10/13/17 10:44 [email or web address] [email or web address]- [email or web address]) Nutritional Asmnt/Malnutrition Patient General Information Nutritional Screening Moderate Risk Diagnosis Psychosis NOS (Reason for visit) Pertinent Medical Hx/Surgical Hx DM, Lupus, insomnia, hyperlipidemia, psychosis, dysphagia, schizophrenia, major depression, transient fracture hands, anxiety, Bilateral Below-knee- amputations Subjective Information Patient was admitted from SNF. Patient in wheelchair d/t bilateral BKA. Patient eating lunch at time of visit. Current Diet Order/ Nutrition Support CCHO, ARACELY with chipped meat and thin liquids Patient / S.O Not Indicated Pertinent Medications maalox, Os-abeba, Vitamin D3, Colace, Novolog, Levemir, MOM, Metformin, Theragran Pertinent Labs (10/08) Na 134, POC Glucose 66 -135 Nutritional Hx/Data Height 4 ft Height (Calculated Centimeters) 121.9 Current Weight (lbs) 98 lb Weight (Calculated Kilograms) 44.5 Weight (Calculated Grams) 24431.1 [place] Body Weight unable to calculate without height before amputation Body Mass Index (BMI) 29.9 Weight Status Overweight GI Symptoms GI Symptoms None Last BM NOne noted since admission Difficult in: None Food Allergies No Cultural/Ethnic/Amish Belief None indicated Usual diet at home Unknown Skin Integrity/Comment: Krzysztof Solano 18 Current %PO Good (75-100%) Estimated Nutritional Goals BEE in Kcals: Using Current wt Calories/Kcals/Kg 44.5kg Current body Weight Kcals Calculated ~9143-4965 kcal/day Protein: Using Current wt Protein g/k-1.2 gm/kg Protein Calculated 45-55 gm/day Fluid: ml ~6351-4521 ml/day (30-35 ml/kg ) Nutritional Problem 1. Problem Problem Altered nutrition related lab values related to Etiology 2 episodes of hypoglycemia, on insulin Signs/Symptoms: aeb POC glucose 66, 66 Intervention/Recommendation Comments 1. Continue 60 gm CCHO, ARACELY diet with chopped meats as tolerated by patient. 2. MD to continue to modify insulin regimen to prevent hypoglycemic episodes. Expected Outcomes/Goals Expected Outcomes/Goals Oral intake >75% of meals, Na and glucose normalizes, maintains skin integrity
--- NOTE | 2017-10-14 14:46 | Progress Notes ---
DATE: 10/14/2017 The patient remains agitated, intermittently compliant, selectively compliant with medications, is still disoriented, nonsensical. The patient is not the best historian, not talking to me. Sleeping fairly well. Eating with prompting. ASSESSMENT: The patient remains symptomatic, disoriented, making nonsensical statements. PLAN: We will continue to monitor. The patient is not safe for a lower level of care. She remains selectively compliant with medications. [facility]# [id number]
[2017-10-15] MEDS: INSULIN ASPART SLIDING SCALE 100 UNITS/ML UNIT SUBQ SCH ×3 (06:30→21:05)
[2017-10-15] MEDS: Multivitamin Tab PO SCH (10:34)
[2017-10-15] MEDS: Aspirin 81mg Chewable Tab PO SCH (10:34)
[2017-10-15] MEDS: NIFEdipine 30 mg ER Tab PO SCH (10:35)
--- NOTE | 2017-10-15 16:21 | General Progress Note ---
Subjective - Review of Systems Events since last encounter: still confused no complaints Objective - Results Result Diagrams: 10/08/17 18:33 10/08/17 18:33 Recent Labs: Laboratory Last Values WBC 5.9 Th/cmm (4.8-10.8) D 10/08/17 18:33 RBC 5.45 Mil/cmm (3.80-5.10) H 10/08/17 18:33 Hgb 14.7 gm/dL (12-16) 10/08/17 18:33 Hct 46.7 % (41.0-60) 10/08/17 18:33 MCV 85.7 fl (81-100) 10/08/17 18:33 MCH 26.9 pg (27.0-31.0) L 10/08/17 18:33 MCHC Differential 31.4 pg (28.0-36.0) 10/08/17 18:33 RDW 14.2 % (11.5-20.0) 10/08/17 18:33 Plt Count 357 Th/cmm (150-400) 10/08/17 18:33 MPV 8.0 fl 10/08/17 18:33 Neutrophils % 50.4 % (40.0-80.0) 10/08/17 18:33 Lymphocytes % 32.5 % (20.0-50.0) 10/08/17 18:33 Monocytes % 13.9 % (2.0-10.0) H 10/08/17 18:33 Eosinophils % 2.5 % (0.0-5.0) 10/08/17 18:33 Basophils % 0.7 % (0.0-2.0) 10/08/17 18:33 Sodium 134 mEq/L (136-145) L 10/08/17 18:33 Potassium 3.9 mEq/L (3.5-5.1) 10/08/17 18:33 Chloride 98 mEq/L (98-107) 10/08/17 18:33 Carbon Dioxide 25.6 mEq/L (21.0-31.0) 10/08/17 18:33 Anion Gap 14.3 (7.0-16.0) 10/08/17 18:33 BUN 13 mg/dL (7-25) 10/08/17 18:33 Creatinine 0.6 mg/dL (0.6-1.2) 10/08/17 18:33 Est GFR ( Amer) > 60.0 ml/min (>90) 10/08/17 18:33 Est GFR (Non-Af Amer) > 60.0 ml/min 10/08/17 18:33 BUN/Creatinine Ratio 21.7 10/08/17 18:33 Glucose 92 mg/dL (70-105) 10/08/17 18:33 POC Glucose 65 MG/DL (70 - 105) L 10/15/17 06:07 Calcium 9.3 mg/dL (8.6-10.3) 10/08/17 18:33 Total Bilirubin 0.3 mg/dL (0.3-1.0) 10/08/17 18:33 AST 16 U/L (13-39) 10/08/17 18:33 ALT 11 U/L (7-52) 10/08/17 18:33 Alkaline Phosphatase 69 U/L (34-104) 10/08/17 18:33 Total Protein 7.5 gm/dL (6.0-8.3) 10/08/17 18:33 Albumin 4.1 gm/dL (3.7-5.3) 10/08/17 18:33 Globulin 3.4 gm/dL 10/08/17 18:33 Albumin/Globulin Ratio 1.2 (1.0-1.8) 10/08/17 18:33 Triglycerides 67 mg/dL (<150) 10/08/17 18:33 Cholesterol 139 mg/dL (<200) 10/08/17 18:33 LDL Cholesterol Direct 75 mg/dL (75-193) 10/08/17 18:33 HDL Cholesterol 62 mg/dL (23-92) 10/08/17 18:33 TSH 1.23 uIU/ml (0.34-5.60) 10/08/17 18:33 RPR NONREACTIVE (NONREACTIVE) 10/08/17 18:33 - Physical Exam Vitals and I&O: Vital Signs Temp 97.6 F 10/15/17 06:04 Pulse 85 10/15/17 10:35 Resp 19 10/15/17 06:04 BP 108/76 10/15/17 10:35 Pulse Ox 96 10/15/17 06:04 Intake & Output 10/14/17 10/15/17 10/15/17 18:59 06:59 18:59 Intake Total 360 Balance 360 Intake: Oral 360 Other: # Voids 2 # Bowel Movements 0 Active Medications: Current Medications Al Hydrox/Mg Hydrox/Simethicone (Maalox) 30 ml PO Q6H PRN PRN Reason: Dyspepsia Stop: 12/07/17 21:42 Artificial Tears (Artificial Tears Ophth Soln) 1 drop EACH EYE BID [facility] Stop: 12/08/17 08:59 Last Admin: 10/14/17 08:39 Dose: Not Given Aspirin (Aspirin Chewable) 81 mg PO DAILY [facility] Stop: 12/08/17 08:59 Last Admin: 10/15/17 10:34 Dose: 81 mg Calcium Carbonate (Os-Kennedy) 500 mg PO TID [facility] Stop: 12/08/17 08:59 Last Admin: 10/15/17 10:35 Dose: 500 mg Cholecalciferol (Vitamin D3) 2,000 iu PO DAILY [facility] Stop: 12/08/17 08:59 Last Admin: 10/15/17 10:35 Dose: 2,000 iu Divalproex Sodium (Depakote Sprinkle) 500 mg PO BID [facility] PRN Reason: Protocol Stop: 12/08/17 08:59 Last Admin: 10/15/17 10:38 Dose: 500 mg Docusate Sodium (Colace) 250 mg PO DAILY [facility] Stop: 12/08/17 08:59 Last Admin: 10/15/17 10:35 Dose: 250 mg Insulin Aspart (Novolog Insulin Sliding Scale) 0 units SUBQ ACHS [facility] PRN Reason: Protocol Stop: 12/08/17 07:29 Last Admin: 10/15/17 06:30 Dose: Not Given Insulin Detemir (Levemir Insulin) 29 units SUBQ QAM [facility] PRN Reason: Protocol Stop: 12/08/17 08:59 Last Admin: 10/14/17 08:38 Dose: Not Given Lisinopril (Zestril) 40 mg PO DAILY [facility] Stop: 12/08/17 08:59 Last Admin: 10/15/17 10:36 Dose: Not Given Lorazepam (Ativan) 1 mg PO Q6H PRN; Protocol PRN Reason: Anxiety/Agitation Stop: 12/07/17 21:42 Magnesium Hydroxide (Milk Of Magnesia) 30 ml PO DAILY PRN PRN Reason: GI DISTRESS Stop: 12/07/17 21:47 Metformin HCl (Glucophage) 850 mg PO TID [facility] Stop: 12/08/17 08:59 Last Admin: 10/15/17 10:36 Dose: Not Given Multivitamins/Vitamin C (Theragran) 1 tab PO DAILY [facility] Stop: 12/08/17 08:59 Last Admin: 10/15/17 10:34 Dose: 1 tab Nifedipine (Procardia Xl) 60 mg PO DAILY [facility] Stop: 12/08/17 08:59 Last Admin: 10/15/17 10:35 Dose: Not Given Quetiapine Fumarate (Seroquel) 25 mg PO BID [facility] PRN Reason: Protocol Stop: 12/09/17 08:59 Last Admin: 10/15/17 10:34 Dose: 25 mg Quetiapine Fumarate (Seroquel) 50 mg PO HS [facility] PRN Reason: Protocol Stop: 12/09/17 20:59 Last Admin: 10/14/17 20:11 Dose: 50 mg Simvastatin (Zocor) 40 mg PO QPM [facility] PRN Reason: Protocol Stop: 12/08/17 16:59 Last Admin: 10/14/17 17:00 Dose: 40 mg Trazodone HCl (Desyrel) 100 mg PO HS [facility] PRN Reason: Protocol Stop: 12/08/17 20:59 Last Admin: 10/14/17 20:10 Dose: 100 mg General: No acute distress HEENT: Atraumatic Neck: Supple, JVD, Thyromegaly Cardiovascular: Regular rate, Normal S1, Normal S2 Lungs: Clear to auscultation Assessment/Plan - Problem List Patient Problems: All Active Problems Dementia (Acute) F03.90 Diabetes (Acute) E11.9 Hyperlipidemia (Acute) E78.5 Lupus (Acute) L93.0 Schizophrenia (Acute) F20.9 Status post bilateral below knee amputation (Acute) Z89.512, Z89.511 - Plan Plan: as per psych will monitor Nutritional Asmnt/Malnutr-PDOC - Dietary Evaluation Malnutrition Findings (Please click <Entered> for more info): Nutritional Asmnt/Malnutrition Start: 10/13/17 10: 20 Text: Status: Complete Freq: Document 10/13/17 10:20 MMULHERN (Rec: 10/13/17 10:44 DARYLAd [email or web address]- [email or web address]) Nutritional Asmnt/Malnutrition Patient General Information Nutritional Screening Moderate Risk Diagnosis Psychosis NOS (Reason for visit) Pertinent Medical Hx/Surgical Hx DM, Lupus, insomnia, hyperlipidemia, psychosis, dysphagia, schizophrenia, major depression, transient fracture hands, anxiety, Bilateral Below-knee- amputations Subjective Information Patient was admitted from SNF. Patient in wheelchair d/t bilateral BKA. Patient eating lunch at time of visit. Current Diet Order/ Nutrition Support CCHO, ARACELY with chipped meat and thin liquids Patient / S.O Not Indicated Pertinent Medications maalox, Os-kennedy, Vitamin D3, Colace, Novolog, Levemir, MOM, Metformin, Theragran Pertinent Labs (10/08) Na 134, POC Glucose 66 -135 Nutritional Hx/Data Height 1.22 m Height (Calculated Centimeters) 121.9 Current Weight (lbs) 44.452 kg Weight (Calculated Kilograms) 44.5 Weight (Calculated Grams) 95817.1 [place] Body Weight unable to calculate without height before amputation Body Mass Index (BMI) 29.9 Weight Status Overweight GI Symptoms GI Symptoms None Last BM NOne noted since admission Difficult in: None Food Allergies No Cultural/Ethnic/Rastafari Belief None indicated Usual diet at home Unknown Skin Integrity/Comment: Krzysztof Solano 18 Current %PO Good (75-100%) Estimated Nutritional Goals BEE in Kcals: Using Current wt Calories/Kcals/Kg 44.5kg Current body Weight Kcals Calculated ~9097-0509 kcal/day Protein: Using Current wt Protein g/k-1.2 gm/kg Protein Calculated 45-55 gm/day Fluid: ml ~1610-3027 ml/day (30-35 ml/kg ) Nutritional Problem 1. Problem Problem Altered nutrition related lab values related to Etiology 2 episodes of hypoglycemia, on insulin Signs/Symptoms: aeb POC glucose 66, 66 Intervention/Recommendation Comments 1. Continue 60 gm CCHO, ARACELY diet with chopped meats as tolerated by patient. 2. MD to continue to modify insulin regimen to prevent hypoglycemic episodes. Expected Outcomes/Goals Expected Outcomes/Goals Oral intake >75% of meals, Na and glucose normalizes, maintains skin integrity
[2017-10-15] MEDS: Insulin Detemir 100 units/mL 10mL Vial SUBQ SCH (18:16)
[2017-10-15] MEDS: Polyvinyl Alcohol Ophth Soln 15 mL Bottle EACH EYE SCH (18:16)
--- NOTE | 2017-10-15 21:07 | Progress Notes ---
DATE: 10/15/2017 SUBJECTIVE: The patient remains agitated and minimally compliant, and selectively compliant with medications, still disoriented, nonsensical, refusing interview, not wanting to talk to me, still appearing to respond to internal stimuli, not safe for a lower level of care, sleeping with machine sander awakenings, eating with prompting. The patient has been agitated upon initial presentation, seems to be somewhat calmer, less aggressive, and more redirectable. MEDICATIONS: Reviewed. No medication side effects noted. ASSESSMENT: The patient remains symptomatic, still not safe for a lower level of care, impulsive and unpredictable. PLAN: We will continue to monitor. We will follow up. [facility]# [id number]
[2017-10-16] MEDS: INSULIN ASPART SLIDING SCALE 100 UNITS/ML UNIT SUBQ SCH ×4 (06:42→20:43)
[2017-10-16] MEDS: Polyvinyl Alcohol Ophth Soln 15 mL Bottle EACH EYE SCH ×2 (08:28→16:01)
[2017-10-16] MEDS: Insulin Detemir 100 units/mL 10mL Vial SUBQ SCH (08:39)
[2017-10-16] MEDS: NIFEdipine 30 mg ER Tab PO SCH (08:41)
[2017-10-16] MEDS: Aspirin 81mg Chewable Tab PO SCH (08:48)
[2017-10-16] MEDS: Multivitamin Tab PO SCH (08:48)
--- NOTE | 2017-10-16 13:18 | Internal Medicine Prog Note ---
Internal Medicine Subjective - Subjective Service Date: 10/16/17 Patient is:: awake Per staff patient has:: no adverse event, tolerating meds Internal Medicine Objective - Results Result Diagrams: 10/08/17 18:33 10/08/17 18:33 Recent Labs: Laboratory Last Values WBC 5.9 Th/cmm (4.8-10.8) D 10/08/17 18:33 RBC 5.45 Mil/cmm (3.80-5.10) H 10/08/17 18:33 Hgb 14.7 gm/dL (12-16) 10/08/17 18:33 Hct 46.7 % (41.0-60) 10/08/17 18:33 MCV 85.7 fl (81-100) 10/08/17 18:33 MCH 26.9 pg (27.0-31.0) L 10/08/17 18:33 MCHC Differential 31.4 pg (28.0-36.0) 10/08/17 18:33 RDW 14.2 % (11.5-20.0) 10/08/17 18:33 Plt Count 357 Th/cmm (150-400) 10/08/17 18:33 MPV 8.0 fl 10/08/17 18:33 Neutrophils % 50.4 % (40.0-80.0) 10/08/17 18:33 Lymphocytes % 32.5 % (20.0-50.0) 10/08/17 18:33 Monocytes % 13.9 % (2.0-10.0) H 10/08/17 18:33 Eosinophils % 2.5 % (0.0-5.0) 10/08/17 18:33 Basophils % 0.7 % (0.0-2.0) 10/08/17 18:33 Sodium 134 mEq/L (136-145) L 10/08/17 18:33 Potassium 3.9 mEq/L (3.5-5.1) 10/08/17 18:33 Chloride 98 mEq/L (98-107) 10/08/17 18:33 Carbon Dioxide 25.6 mEq/L (21.0-31.0) 10/08/17 18:33 Anion Gap 14.3 (7.0-16.0) 10/08/17 18:33 BUN 13 mg/dL (7-25) 10/08/17 18:33 Creatinine 0.6 mg/dL (0.6-1.2) 10/08/17 18:33 Est GFR ( Amer) > 60.0 ml/min (>90) 10/08/17 18:33 Est GFR (Non-Af Amer) > 60.0 ml/min 10/08/17 18:33 BUN/Creatinine Ratio 21.7 10/08/17 18:33 Glucose 92 mg/dL (70-105) 10/08/17 18:33 POC Glucose 65 MG/DL (70 - 105) L 10/15/17 06:07 Calcium 9.3 mg/dL (8.6-10.3) 10/08/17 18:33 Total Bilirubin 0.3 mg/dL (0.3-1.0) 10/08/17 18:33 AST 16 U/L (13-39) 10/08/17 18:33 ALT 11 U/L (7-52) 10/08/17 18:33 Alkaline Phosphatase 69 U/L (34-104) 10/08/17 18:33 Total Protein 7.5 gm/dL (6.0-8.3) 10/08/17 18:33 Albumin 4.1 gm/dL (3.7-5.3) 10/08/17 18:33 Globulin 3.4 gm/dL 10/08/17 18:33 Albumin/Globulin Ratio 1.2 (1.0-1.8) 10/08/17 18:33 Triglycerides 67 mg/dL (<150) 10/08/17 18:33 Cholesterol 139 mg/dL (<200) 10/08/17 18:33 LDL Cholesterol Direct 75 mg/dL (75-193) 10/08/17 18:33 HDL Cholesterol 62 mg/dL (23-92) 10/08/17 18:33 TSH 1.23 uIU/ml (0.34-5.60) 10/08/17 18:33 RPR NONREACTIVE (NONREACTIVE) 10/08/17 18:33 - Physical Exam Vitals and I&O: Vital Signs Temp 97.7 F 10/16/17 06:36 Pulse 69 10/16/17 08:47 Resp 19 10/16/17 06:36 BP 130/68 10/16/17 08:47 Pulse Ox 98 10/16/17 06:36 Intake & Output 10/15/17 10/16/17 10/16/17 18:59 06:59 18:59 Intake Total 1000 120 Balance 1000 120 Intake: Oral 1000 120 Other: # Voids 3 3 # Bowel Movements 0 Active Medications: Current Medications Al Hydrox/Mg Hydrox/Simethicone (Maalox) 30 ml PO Q6H PRN PRN Reason: Dyspepsia Stop: 12/07/17 21:42 Artificial Tears (Artificial Tears Ophth Soln) 1 drop EACH EYE BID [facility] Stop: 12/08/17 08:59 Last Admin: 10/16/17 08:28 Dose: Not Given Aspirin (Aspirin Chewable) 81 mg PO DAILY [facility] Stop: 12/08/17 08:59 Last Admin: 10/16/17 08:48 Dose: 81 mg Calcium Carbonate (Os-Kennedy) 500 mg PO TID [facility] Stop: 12/08/17 08:59 Last Admin: 10/16/17 08:47 Dose: Not Given Cholecalciferol (Vitamin D3) 2,000 iu PO DAILY [facility] Stop: 12/08/17 08:59 Last Admin: 10/16/17 08:48 Dose: 2,000 iu Divalproex Sodium (Depakote Sprinkle) 500 mg PO BID [facility] PRN Reason: Protocol Stop: 12/08/17 08:59 Last Admin: 10/16/17 08:46 Dose: Not Given Docusate Sodium (Colace) 250 mg PO DAILY [facility] Stop: 12/08/17 08:59 Last Admin: 10/16/17 08:48 Dose: Not Given Insulin Aspart (Novolog Insulin Sliding Scale) 0 units SUBQ ACHS [facility] PRN Reason: Protocol Stop: 12/08/17 07:29 Last Admin: 10/16/17 12:23 Dose: Not Given Insulin Detemir (Levemir Insulin) 29 units SUBQ QAM [facility] PRN Reason: Protocol Stop: 12/08/17 08:59 Last Admin: 10/16/17 08:39 Dose: Not Given Lisinopril (Zestril) 40 mg PO DAILY [facility] Stop: 12/08/17 08:59 Last Admin: 10/16/17 08:47 Dose: 40 mg Magnesium Hydroxide (Milk Of Magnesia) 30 ml PO DAILY PRN PRN Reason: GI DISTRESS Stop: 12/07/17 21:47 Metformin HCl (Glucophage) 850 mg PO TID [facility] Stop: 12/08/17 08:59 Last Admin: 10/16/17 10:00 Dose: Not Given Multivitamins/Vitamin C (Theragran) 1 tab PO DAILY [facility] Stop: 12/08/17 08:59 Last Admin: 10/16/17 08:48 Dose: 1 tab Nifedipine (Procardia Xl) 60 mg PO DAILY [facility] Stop: 12/08/17 08:59 Last Admin: 10/16/17 08:41 Dose: 60 mg Quetiapine Fumarate (Seroquel) 25 mg PO BID [facility] PRN Reason: Protocol Stop: 12/09/17 08:59 Last Admin: 10/16/17 08:47 Dose: 25 mg Quetiapine Fumarate (Seroquel) 50 mg PO HS [facility] PRN Reason: Protocol Stop: 12/09/17 20:59 Last Admin: 10/15/17 20:57 Dose: 50 mg Simvastatin (Zocor) 40 mg PO QPM [facility] PRN Reason: Protocol Stop: 12/08/17 16:59 Last Admin: 10/15/17 18:15 Dose: 40 mg Trazodone HCl (Desyrel) 100 mg PO HS [facility] PRN Reason: Protocol Stop: 12/08/17 20:59 Last Admin: 10/15/17 20:58 Dose: 100 mg General: alert HEENT: NC/AT, PERRLA Neck: Supple Lungs: CTAB Extremities: excoriation Neurological: no change Internal Medicine Assmt/Plan - Assessment Assessment: DM,lupus; insomnia; hyperlipidemia; psychosis; dysphagia; schizophrenia; major depression; transient fracture hands; anxiety; bilateral below-knee amputations - Plan Plan: monitor glucose safety precuations continue current orders Nutritional Asmnt/Malnutr-PDOC - Dietary Evaluation Malnutrition Findings (Please click <Entered> for more info): Nutritional Asmnt/Malnutrition Start: 10/13/17 10: 20 Text: Status: Complete Freq: Document 10/13/17 10:20 [email or web address] (Rec: 10/13/17 10:44 [email or web address] MARCUS [email or web address]) Nutritional Asmnt/Malnutrition Patient General Information Nutritional Screening Moderate Risk Diagnosis Psychosis NOS (Reason for visit) Pertinent Medical Hx/Surgical Hx DM, Lupus, insomnia, hyperlipidemia, psychosis, dysphagia, schizophrenia, major depression, transient fracture hands, anxiety, Bilateral Below-knee- amputations Subjective Information Patient was admitted from SNF. Patient in wheelchair d/t bilateral BKA. Patient eating lunch at time of visit. Current Diet Order/ Nutrition Support CCHO, ARACELY with chipped meat and thin liquids Patient / S.O Not Indicated Pertinent Medications maalox, Os-kennedy, Vitamin D3, Colace, Novolog, Levemir, MOM, Metformin, Theragran Pertinent Labs (10/08) Na 134, POC Glucose 66 -135 Nutritional Hx/Data Height 4 ft Height (Calculated Centimeters) 121.9 Current Weight (lbs) 98 lb Weight (Calculated Kilograms) 44.5 Weight (Calculated Grams) 50710.1 [place] Body Weight unable to calculate without height before amputation Body Mass Index (BMI) 29.9 Weight Status Overweight GI Symptoms GI Symptoms None Last BM NOne noted since admission Difficult in: None Food Allergies No Cultural/Ethnic/Baptist Belief None indicated Usual diet at home Unknown Skin Integrity/Comment: Krzysztof Solano 18 Current %PO Good (75-100%) Estimated Nutritional Goals BEE in Kcals: Using Current wt Calories/Kcals/Kg 44.5kg Current body Weight Kcals Calculated ~8865-8479 kcal/day Protein: Using Current wt Protein g/k-1.2 gm/kg Protein Calculated 45-55 gm/day Fluid: ml ~5749-9407 ml/day (30-35 ml/kg ) Nutritional Problem 1. Problem Problem Altered nutrition related lab values related to Etiology 2 episodes of hypoglycemia, on insulin Signs/Symptoms: aeb POC glucose 66, 66 Intervention/Recommendation Comments 1. Continue 60 gm CCHO, ARACELY diet with chopped meats as tolerated by patient. 2. MD to continue to modify insulin regimen to prevent hypoglycemic episodes. Expected Outcomes/Goals Expected Outcomes/Goals Oral intake >75% of meals, Na and glucose normalizes, maintains skin integrity
--- NOTE | 2017-10-16 22:10 | Progress Notes ---
DATE: 10/16/2017 HISTORY OF PRESENT ILLNESS: The patient remains restless, paranoid, making odd statements. "You are not capable of being a doctor" highly selective, word salad, talking about autopsies and different buildings. Sleeping with meter tester primary awakening, still rambling, responding to internal stimuli, refusing Depakote. ASSESSMENT: The patient remains symptomatic, bizarre, paranoid, delusional, odd and disorganized. Medications are reviewed. PLAN: We will continue to monitor and follow up. The patient is not taking Depakote very routinely, but has been taking Seroquel. I will be increasing her Seroquel dosing to 75 mg at bedtime to see if this helps treat her ongoing psychosis. [facility]# [id number]
[2017-10-17] MEDS: INSULIN ASPART SLIDING SCALE 100 UNITS/ML UNIT SUBQ SCH ×4 (07:05→22:02)
[2017-10-17] MEDS: Aspirin 81mg Chewable Tab PO SCH (08:58)
[2017-10-17] MEDS: NIFEdipine 30 mg ER Tab PO SCH (08:58)
[2017-10-17] MEDS: Multivitamin Tab PO SCH (08:59)
[2017-10-17] MEDS: Insulin Detemir 100 units/mL 10mL Vial SUBQ SCH (09:02)
[2017-10-17] MEDS: Polyvinyl Alcohol Ophth Soln 15 mL Bottle EACH EYE SCH ×2 (09:17→16:19)
--- NOTE | 2017-10-17 12:16 | Internal Medicine Prog Note ---
Internal Medicine Subjective - Subjective Service Date: 10/17/17 Patient is:: awake Per staff patient has:: no adverse event, tolerating meds Internal Medicine Objective - Results Result Diagrams: 10/08/17 18:33 10/08/17 18:33 Recent Labs: Laboratory Last Values WBC 5.9 Th/cmm (4.8-10.8) D 10/08/17 18:33 RBC 5.45 Mil/cmm (3.80-5.10) H 10/08/17 18:33 Hgb 14.7 gm/dL (12-16) 10/08/17 18:33 Hct 46.7 % (41.0-60) 10/08/17 18:33 MCV 85.7 fl (81-100) 10/08/17 18:33 MCH 26.9 pg (27.0-31.0) L 10/08/17 18:33 MCHC Differential 31.4 pg (28.0-36.0) 10/08/17 18:33 RDW 14.2 % (11.5-20.0) 10/08/17 18:33 Plt Count 357 Th/cmm (150-400) 10/08/17 18:33 MPV 8.0 fl 10/08/17 18:33 Neutrophils % 50.4 % (40.0-80.0) 10/08/17 18:33 Lymphocytes % 32.5 % (20.0-50.0) 10/08/17 18:33 Monocytes % 13.9 % (2.0-10.0) H 10/08/17 18:33 Eosinophils % 2.5 % (0.0-5.0) 10/08/17 18:33 Basophils % 0.7 % (0.0-2.0) 10/08/17 18:33 Sodium 134 mEq/L (136-145) L 10/08/17 18:33 Potassium 3.9 mEq/L (3.5-5.1) 10/08/17 18:33 Chloride 98 mEq/L (98-107) 10/08/17 18:33 Carbon Dioxide 25.6 mEq/L (21.0-31.0) 10/08/17 18:33 Anion Gap 14.3 (7.0-16.0) 10/08/17 18:33 BUN 13 mg/dL (7-25) 10/08/17 18:33 Creatinine 0.6 mg/dL (0.6-1.2) 10/08/17 18:33 Est GFR ( Amer) > 60.0 ml/min (>90) 10/08/17 18:33 Est GFR (Non-Af Amer) > 60.0 ml/min 10/08/17 18:33 BUN/Creatinine Ratio 21.7 10/08/17 18:33 Glucose 92 mg/dL (70-105) 10/08/17 18:33 POC Glucose 65 MG/DL (70 - 105) L 10/15/17 06:07 Calcium 9.3 mg/dL (8.6-10.3) 10/08/17 18:33 Total Bilirubin 0.3 mg/dL (0.3-1.0) 10/08/17 18:33 AST 16 U/L (13-39) 10/08/17 18:33 ALT 11 U/L (7-52) 10/08/17 18:33 Alkaline Phosphatase 69 U/L (34-104) 10/08/17 18:33 Total Protein 7.5 gm/dL (6.0-8.3) 10/08/17 18:33 Albumin 4.1 gm/dL (3.7-5.3) 10/08/17 18:33 Globulin 3.4 gm/dL 10/08/17 18:33 Albumin/Globulin Ratio 1.2 (1.0-1.8) 10/08/17 18:33 Triglycerides 67 mg/dL (<150) 10/08/17 18:33 Cholesterol 139 mg/dL (<200) 10/08/17 18:33 LDL Cholesterol Direct 75 mg/dL (75-193) 10/08/17 18:33 HDL Cholesterol 62 mg/dL (23-92) 10/08/17 18:33 TSH 1.23 uIU/ml (0.34-5.60) 10/08/17 18:33 RPR NONREACTIVE (NONREACTIVE) 10/08/17 18:33 - Physical Exam Vitals and I&O: Vital Signs Temp 97.7 F 10/17/17 06:29 Pulse 86 10/17/17 09:01 Resp 19 10/17/17 06:29 BP 111/60 10/17/17 09:01 Pulse Ox 98 10/17/17 06:29 Intake & Output 10/16/17 10/17/17 10/17/17 18:59 06:59 18:59 Intake Total 1200 120 Balance 1200 120 Intake: Oral 1200 120 Other: # Voids 3 3 Active Medications: Current Medications Al Hydrox/Mg Hydrox/Simethicone (Maalox) 30 ml PO Q6H PRN PRN Reason: Dyspepsia Stop: 12/07/17 21:42 Artificial Tears (Artificial Tears Ophth Soln) 1 drop EACH EYE BID [facility] Stop: 12/08/17 08:59 Last Admin: 10/17/17 09:17 Dose: Not Given Aspirin (Aspirin Chewable) 81 mg PO DAILY [facility] Stop: 12/08/17 08:59 Last Admin: 10/17/17 08:58 Dose: 81 mg Calcium Carbonate (Os-Abeba) 500 mg PO TID [facility] Stop: 12/08/17 08:59 Last Admin: 10/17/17 09:00 Dose: Not Given Cholecalciferol (Vitamin D3) 2,000 iu PO DAILY [facility] Stop: 12/08/17 08:59 Last Admin: 10/17/17 09:00 Dose: 2,000 iu Divalproex Sodium (Depakote Sprinkle) 500 mg PO BID [facility] PRN Reason: Protocol Stop: 12/08/17 08:59 Last Admin: 10/17/17 08:56 Dose: 500 mg Docusate Sodium (Colace) 250 mg PO DAILY [facility] Stop: 12/08/17 08:59 Last Admin: 10/17/17 08:58 Dose: Not Given Insulin Aspart (Novolog Insulin Sliding Scale) 0 units SUBQ ACHS [facility] PRN Reason: Protocol Stop: 12/08/17 07:29 Last Admin: 10/17/17 11:06 Dose: Not Given Insulin Detemir (Levemir Insulin) 29 units SUBQ QAM [facility] PRN Reason: Protocol Stop: 12/08/17 08:59 Last Admin: 10/17/17 09:02 Dose: Not Given Lisinopril (Zestril) 40 mg PO DAILY [facility] Stop: 12/08/17 08:59 Last Admin: 10/17/17 09:01 Dose: 40 mg Magnesium Hydroxide (Milk Of Magnesia) 30 ml PO DAILY PRN PRN Reason: GI DISTRESS Stop: 12/07/17 21:47 Metformin HCl (Glucophage) 850 mg PO TID [facility] Stop: 12/08/17 08:59 Last Admin: 10/17/17 08:59 Dose: 850 mg Multivitamins/Vitamin C (Theragran) 1 tab PO DAILY [facility] Stop: 12/08/17 08:59 Last Admin: 10/17/17 08:59 Dose: 1 tab Nifedipine (Procardia Xl) 60 mg PO DAILY [facility] Stop: 12/08/17 08:59 Last Admin: 10/17/17 08:58 Dose: 60 mg Quetiapine Fumarate (Seroquel) 25 mg PO BID [facility] PRN Reason: Protocol Stop: 12/09/17 08:59 Last Admin: 10/17/17 08:58 Dose: 25 mg Quetiapine Fumarate (Seroquel) 75 mg PO HS [facility] PRN Reason: Protocol Stop: 12/15/17 14:40 Last Admin: 10/16/17 20:35 Dose: 75 mg Simvastatin (Zocor) 40 mg PO QPM [facility] PRN Reason: Protocol Stop: 12/08/17 16:59 Last Admin: 10/16/17 16:11 Dose: 40 mg Trazodone HCl (Desyrel) 100 mg PO HS [facility] PRN Reason: Protocol Stop: 12/08/17 20:59 Last Admin: 10/16/17 20:36 Dose: 100 mg General: alert HEENT: NC/AT, PERRLA Neck: Supple Lungs: CTAB Extremities: excoriation Neurological: no change Internal Medicine Assmt/Plan - Assessment Assessment: DM,lupus; insomnia; hyperlipidemia; psychosis; dysphagia; schizophrenia; major depression; transient fracture hands; anxiety; bilateral below-knee amputations - Plan Plan: monitor glucose safety precuations continue current orders Nutritional Asmnt/Malnutr-PDOC - Dietary Evaluation Malnutrition Findings (Please click <Entered> for more info): Nutritional Asmnt/Malnutrition Start: 10/13/17 10: 20 Text: Status: Complete Freq: Document 10/13/17 10:20 MMRAMIRO (Rec: 10/13/17 10:44 MMRAMIRO ZAVALETA- [id number]) Nutritional Asmnt/Malnutrition Patient General Information Nutritional Screening Moderate Risk Diagnosis Psychosis NOS (Reason for visit) Pertinent Medical Hx/Surgical Hx DM, Lupus, insomnia, hyperlipidemia, psychosis, dysphagia, schizophrenia, major depression, transient fracture hands, anxiety, Bilateral Below-knee- amputations Subjective Information Patient was admitted from SNF. Patient in wheelchair d/t bilateral BKA. Patient eating lunch at time of visit. Current Diet Order/ Nutrition Support CCHO, ARACELY with chipped meat and thin liquids Patient / S.O Not Indicated Pertinent Medications maalox, Os-abeba, Vitamin D3, Colace, Novolog, Levemir, MOM, Metformin, Theragran Pertinent Labs (10/08) Na 134, POC Glucose 66 -135 Nutritional Hx/Data Height 4 ft Height (Calculated Centimeters) 121.9 Current Weight (lbs) 98 lb Weight (Calculated Kilograms) 44.5 Weight (Calculated Grams) 14721.1 [place] Body Weight unable to calculate without height before amputation Body Mass Index (BMI) 29.9 Weight Status Overweight GI Symptoms GI Symptoms None Last BM NOne noted since admission Difficult in: None Food Allergies No Cultural/Ethnic/[employer] Belief None indicated Usual diet at home Unknown Skin Integrity/Comment: Krzysztof Solano 18 Current %PO Good (75-100%) Estimated Nutritional Goals BEE in Kcals: Using Current wt Calories/Kcals/Kg 44.5kg Current body Weight Kcals Calculated ~7030-5944 kcal/day Protein: Using Current wt Protein g/k-1.2 gm/kg Protein Calculated 45-55 gm/day Fluid: ml ~3885-0806 ml/day (30-35 ml/kg ) Nutritional Problem 1. Problem Problem Altered nutrition related lab values related to Etiology 2 episodes of hypoglycemia, on insulin Signs/Symptoms: aeb POC glucose 66, 66 Intervention/Recommendation Comments 1. Continue 60 gm CCHO, ARACELY diet with chopped meats as tolerated by patient. 2. MD to continue to modify insulin regimen to prevent hypoglycemic episodes. Expected Outcomes/Goals Expected Outcomes/Goals Oral intake >75% of meals, Na and glucose normalizes, maintains skin integrity
[2017-10-18] MEDS: INSULIN ASPART SLIDING SCALE 100 UNITS/ML UNIT SUBQ SCH ×4 (06:37→21:42)
[2017-10-18] MEDS: Aspirin 81mg Chewable Tab PO SCH (09:15)
[2017-10-18] MEDS: Multivitamin Tab PO SCH (09:16)
[2017-10-18] MEDS: NIFEdipine 30 mg ER Tab PO SCH (09:16)
[2017-10-18] MEDS: Insulin Detemir 100 units/mL 10mL Vial SUBQ SCH (09:25)
--- NOTE | 2017-10-18 11:35 | Progress Notes ---
DATE: 10/17/2017 SUBJECTIVE: The patient remains paranoia, still making odd statements, telling me to take her home and turn the TV off on my way, making bizarre statements, talking with autopsies, word salad, talking about my medical degree, still rambling, responding to internal stimuli, sleeping with early learning teacher awakenings, remains impulsive, unpredictable. MEDICATIONS: Reviewed. ASSESSMENT: The patient remains symptomatic, bizarre, still psychotic. PLAN: We will continue to monitor recent dose increase of Seroquel. We will continue at current dose. JOB# [id number]
[2017-10-18] MEDS: Polyvinyl Alcohol Ophth Soln 15 mL Bottle EACH EYE SCH ×2 (16:48→16:51)
--- NOTE | 2017-10-18 22:56 | Progress Notes ---
DATE: 10/18/2017 SUBJECTIVE: The patient was seen in the dining area, watching television. The patient appears to be paranoid and delusional, but the patient appears to be in no acute distress. OBJECTIVE: VITAL SIGNS: Temperature 98.2, heart rate of 88, respiratory rate 18, blood pressure 120/67, 98% on room air. HEENT: Head is atraumatic and normocephalic. Eyes: Bilateral conjunctivae are clear. Bilateral pupils are equally round and reactive. NECK: Supple. No JVD. CARDIOVASCULAR: S1 and S2, without murmur. PULMONARY: Clear to auscultation. GASTROINTESTINAL: Soft and nontender without guarding. Positive bowel sounds. MUSCULOSKELETAL: No clubbing, cyanosis noted. Positive bilateral below knee amputation. ASSESSMENT: 1. Dementia. 2. Schizoaffective disorder. 3. Hyperlipidemia. 4. Diabetes mellitus. 5. Bilateral below knee amputation. 6. Lupus. PLAN: We will keep the patient inpatient in the Psychiatric Unit. We will follow up with a psychiatrist to monitor the patient's condition and behavior. Treatment plans were discussed with the patient's nurse. Treatment plans were discussed with Dr. Sullivan. JOB# [id number]
--- NOTE | 2017-10-19 00:26 | Progress Notes ---
DATE: 10/18/2017 SUBJECTIVE: Overnight, nursing staff reported the patient continues to be easily irritable and easily agitated. Today on [id number] evaluation, the patient presents still disorganized and rambling. She makes one bizarre comments such as "they crack eggs like Mexicans" and then she jumped from another topic, saying "crack eggs and perseverate on Mexicans". Then talked about, salad, not engage in much information and observed to be laughing inappropriately and responded. MENTAL STATUS EXAMINATION: Responding to stimuli, delusional, making bizarre comments. There were salad, and unable to make her needs appropriately. ASSESSMENT AND PLAN: The patient is an 62-year-old female who continues to be still disorganized, psychotic, unable to formulate a safe. We will continue with primary treatment plan and goals. We will continue with Depakote 500 mg p.o. b.i.d. and Seroquel 25 b.i.d. and 75 mg at bedtime. This medication was recently adjusted less than 48 hours ago, still reaching steady state and will follow up on Depakote levels. JOB# [id number]
[2017-10-19] MEDS: INSULIN ASPART SLIDING SCALE 100 UNITS/ML UNIT SUBQ SCH ×4 (06:43→21:58)
[2017-10-19] MEDS: Multivitamin Tab PO SCH (09:02)
[2017-10-19] MEDS: NIFEdipine 30 mg ER Tab PO SCH (09:02)
[2017-10-19] MEDS: Aspirin 81mg Chewable Tab PO SCH (09:02)
--- NOTE | 2017-10-19 10:40 | General Progress Note ---
Subjective - Review of Systems Events since last encounter: patient delusional in no acute distress irritable at times Objective - Results Result Diagrams: 10/08/17 18:33 10/08/17 18:33 Recent Labs: Laboratory Last Values WBC 5.9 Th/cmm (4.8-10.8) D 10/08/17 18:33 RBC 5.45 Mil/cmm (3.80-5.10) H 10/08/17 18:33 Hgb 14.7 gm/dL (12-16) 10/08/17 18:33 Hct 46.7 % (41.0-60) 10/08/17 18:33 MCV 85.7 fl (81-100) 10/08/17 18:33 MCH 26.9 pg (27.0-31.0) L 10/08/17 18:33 MCHC Differential 31.4 pg (28.0-36.0) 10/08/17 18:33 RDW 14.2 % (11.5-20.0) 10/08/17 18:33 Plt Count 357 Th/cmm (150-400) 10/08/17 18:33 MPV 8.0 fl 10/08/17 18:33 Neutrophils % 50.4 % (40.0-80.0) 10/08/17 18:33 Lymphocytes % 32.5 % (20.0-50.0) 10/08/17 18:33 Monocytes % 13.9 % (2.0-10.0) H 10/08/17 18:33 Eosinophils % 2.5 % (0.0-5.0) 10/08/17 18:33 Basophils % 0.7 % (0.0-2.0) 10/08/17 18:33 Sodium 134 mEq/L (136-145) L 10/08/17 18:33 Potassium 3.9 mEq/L (3.5-5.1) 10/08/17 18:33 Chloride 98 mEq/L (98-107) 10/08/17 18:33 Carbon Dioxide 25.6 mEq/L (21.0-31.0) 10/08/17 18:33 Anion Gap 14.3 (7.0-16.0) 10/08/17 18:33 BUN 13 mg/dL (7-25) 10/08/17 18:33 Creatinine 0.6 mg/dL (0.6-1.2) 10/08/17 18:33 Est GFR ( Amer) > 60.0 ml/min (>90) 10/08/17 18:33 Est GFR (Non-Af Amer) > 60.0 ml/min 10/08/17 18:33 BUN/Creatinine Ratio 21.7 10/08/17 18:33 Glucose 92 mg/dL (70-105) 10/08/17 18:33 POC Glucose 120 MG/DL (70 - 105) H 10/18/17 16:11 Calcium 9.3 mg/dL (8.6-10.3) 10/08/17 18:33 Total Bilirubin 0.3 mg/dL (0.3-1.0) 10/08/17 18:33 AST 16 U/L (13-39) 10/08/17 18:33 ALT 11 U/L (7-52) 10/08/17 18:33 Alkaline Phosphatase 69 U/L (34-104) 10/08/17 18:33 Total Protein 7.5 gm/dL (6.0-8.3) 10/08/17 18:33 Albumin 4.1 gm/dL (3.7-5.3) 10/08/17 18:33 Globulin 3.4 gm/dL 10/08/17 18:33 Albumin/Globulin Ratio 1.2 (1.0-1.8) 10/08/17 18:33 Triglycerides 67 mg/dL (<150) 10/08/17 18:33 Cholesterol 139 mg/dL (<200) 10/08/17 18:33 LDL Cholesterol Direct 75 mg/dL (75-193) 10/08/17 18:33 HDL Cholesterol 62 mg/dL (23-92) 10/08/17 18:33 TSH 1.23 uIU/ml (0.34-5.60) 10/08/17 18:33 Valproic Acid 67.9 ug/mL (50.0-100.0) 10/19/17 08:00 RPR NONREACTIVE (NONREACTIVE) 10/08/17 18:33 - Physical Exam Vitals and I&O: Vital Signs Temp 98.6 F 10/19/17 05:57 Pulse 90 10/19/17 09:02 Resp 20 10/19/17 05:57 BP 112/58 10/19/17 09:02 Pulse Ox 96 10/19/17 05:57 Intake & Output 10/18/17 10/19/17 10/19/17 18:59 06:59 18:59 Intake Total 1200 480 Balance 1200 480 Intake: Oral 1200 480 Other: # Voids 3 1 Active Medications: Current Medications Al Hydrox/Mg Hydrox/Simethicone (Maalox) 30 ml PO Q6H PRN PRN Reason: Dyspepsia Stop: 12/07/17 21:42 Artificial Tears (Artificial Tears Ophth Soln) 1 drop EACH EYE BID [facility] Stop: 12/08/17 08:59 Last Admin: 10/18/17 16:51 Dose: Not Given Aspirin (Aspirin Chewable) 81 mg PO DAILY [facility] Stop: 12/08/17 08:59 Last Admin: 10/19/17 09:02 Dose: 81 mg Calcium Carbonate (Os-Kennedy) 500 mg PO TID [facility] Stop: 12/08/17 08:59 Last Admin: 10/19/17 09:01 Dose: 500 mg Cholecalciferol (Vitamin D3) 2,000 iu PO DAILY [facility] Stop: 12/08/17 08:59 Last Admin: 10/19/17 09:02 Dose: 2,000 iu Divalproex Sodium (Depakote Sprinkle) 500 mg PO BID [facility] PRN Reason: Protocol Stop: 12/08/17 08:59 Last Admin: 10/19/17 09:02 Dose: 500 mg Docusate Sodium (Colace) 250 mg PO DAILY [facility] Stop: 12/08/17 08:59 Last Admin: 10/19/17 09:02 Dose: Not Given Insulin Aspart (Novolog Insulin Sliding Scale) 0 units SUBQ ACHS [facility] PRN Reason: Protocol Stop: 12/08/17 07:29 Last Admin: 10/19/17 06:43 Dose: Not Given Insulin Detemir (Levemir Insulin) 29 units SUBQ QAM [facility] PRN Reason: Protocol Stop: 12/08/17 08:59 Last Admin: 10/18/17 09:25 Dose: Not Given Lisinopril (Zestril) 40 mg PO DAILY [facility] Stop: 12/08/17 08:59 Last Admin: 10/19/17 09:01 Dose: 40 mg Magnesium Hydroxide (Milk Of Magnesia) 30 ml PO DAILY [facility] PRN Reason: GI DISTRESS Stop: 12/07/17 21:47 Metformin HCl (Glucophage) 850 mg PO TID [facility] Stop: 12/08/17 08:59 Last Admin: 10/19/17 09:00 Dose: 850 mg Multivitamins/Vitamin C (Theragran) 1 tab PO DAILY [facility] Stop: 12/08/17 08:59 Last Admin: 10/19/17 09:02 Dose: Not Given Nifedipine (Procardia Xl) 60 mg PO DAILY [facility] Stop: 12/08/17 08:59 Last Admin: 10/19/17 09:02 Dose: 60 mg Quetiapine Fumarate (Seroquel) 25 mg PO BID [facility] PRN Reason: Protocol Stop: 12/09/17 08:59 Last Admin: 10/19/17 09:02 Dose: 25 mg Quetiapine Fumarate (Seroquel) 75 mg PO HS [facility] PRN Reason: Protocol Stop: 12/15/17 14:40 Last Admin: 10/18/17 21:42 Dose: Not Given Simvastatin (Zocor) 40 mg PO QPM [facility] PRN Reason: Protocol Stop: 12/08/17 16:59 Last Admin: 10/18/17 16:50 Dose: 40 mg Trazodone HCl (Desyrel) 100 mg PO HS [facility] PRN Reason: Protocol Stop: 12/08/17 20:59 Last Admin: 10/18/17 21:42 Dose: Not Given General: No acute distress HEENT: Atraumatic Neck: Supple, JVD, Thyromegaly Cardiovascular: Regular rate, Normal S1, Normal S2 Lungs: Clear to auscultation Assessment/Plan - Problem List Patient Problems: All Active Problems Dementia (Acute) F03.90 Diabetes (Acute) E11.9 Hyperlipidemia (Acute) E78.5 Lupus (Acute) L93.0 Schizophrenia (Acute) F20.9 Status post bilateral below knee amputation (Acute) Z89.512, Z89.511 - Plan Plan: as per psych will monitor Nutritional Asmnt/Malnutr-PDOC - Dietary Evaluation Malnutrition Findings (Please click <Entered> for more info): Nutritional Asmnt/Malnutrition Start: 10/13/17 10: 20 Text: Status: Complete Freq: Document 10/13/17 10:20 MMULHERN (Rec: 10/13/17 10:44 SHRUTI MEGHANN- [id number]) Nutritional Asmnt/Malnutrition Patient General Information Nutritional Screening Moderate Risk Diagnosis Psychosis NOS (Reason for visit) Pertinent Medical Hx/Surgical Hx DM, Lupus, insomnia, hyperlipidemia, psychosis, dysphagia, schizophrenia, major depression, transient fracture hands, anxiety, Bilateral Below-knee- amputations Subjective Information Patient was admitted from SNF. Patient in wheelchair d/t bilateral BKA. Patient eating lunch at time of visit. Current Diet Order/ Nutrition Support CCHO, ARACELY with chipped meat and thin liquids Patient / S.O Not Indicated Pertinent Medications maalox, Os-kennedy, Vitamin D3, Colace, Novolog, Levemir, MOM, Metformin, Theragran Pertinent Labs (10/08) Na 134, POC Glucose 66 -135 Nutritional Hx/Data Height 1.22 m Height (Calculated Centimeters) 121.9 Current Weight (lbs) 44.452 kg Weight (Calculated Kilograms) 44.5 Weight (Calculated Grams) 16756.1 [place] Body Weight unable to calculate without height before amputation Body Mass Index (BMI) 29.9 Weight Status Overweight GI Symptoms GI Symptoms None Last BM NOne noted since admission Difficult in: None Food Allergies No Cultural/Ethnic/Denominational Belief None indicated Usual diet at home Unknown Skin Integrity/Comment: Krzysztof Solano 18 Current %PO Good (75-100%) Estimated Nutritional Goals BEE in Kcals: Using Current wt Calories/Kcals/Kg 44.5kg Current body Weight Kcals Calculated ~8091-1075 kcal/day Protein: Using Current wt Protein g/k-1.2 gm/kg Protein Calculated 45-55 gm/day Fluid: ml ~1334-7057 ml/day (30-35 ml/kg ) Nutritional Problem 1. Problem Problem Altered nutrition related lab values related to Etiology 2 episodes of hypoglycemia, on insulin Signs/Symptoms: aeb POC glucose 66, 66 Intervention/Recommendation Comments 1. Continue 60 gm CCHO, ARACELY diet with chopped meats as tolerated by patient. 2. MD to continue to modify insulin regimen to prevent hypoglycemic episodes. Expected Outcomes/Goals Expected Outcomes/Goals Oral intake >75% of meals, Na and glucose normalizes, maintains skin integrity
[2017-10-19] MEDS: Polyvinyl Alcohol Ophth Soln 15 mL Bottle EACH EYE SCH ×2 (10:41→16:37)
[2017-10-19] MEDS: Insulin Detemir 100 units/mL 10mL Vial SUBQ SCH (12:36)
[2017-10-20] MEDS: INSULIN ASPART SLIDING SCALE 100 UNITS/ML UNIT SUBQ SCH ×3 (06:45→21:00)
[2017-10-20] MEDS: Polyvinyl Alcohol Ophth Soln 15 mL Bottle EACH EYE SCH ×2 (08:23→16:55)
[2017-10-20] MEDS: Aspirin 81mg Chewable Tab PO SCH (08:24)
[2017-10-20] MEDS: Insulin Detemir 100 units/mL 10mL Vial SUBQ SCH (08:25)
[2017-10-20] MEDS: Multivitamin Tab PO SCH (08:26)
[2017-10-20] MEDS: NIFEdipine 30 mg ER Tab PO SCH (08:26)
--- NOTE | 2017-10-20 09:22 | Progress Notes ---
DATE: 10/19/2017 SUBJECTIVE: The patient was seen and evaluated and chart reviewed. This is Dr. Sheikh covering for Dr. Dalton. Overnight nursing staff reported that the patient continues to be ____ easily irritable, agitated, screams. Today on [id number] evaluation, the patient continues to perseverate ____ Barack Obama and then jump from one topic to another topic. MENTAL STATUS EXAMINATION: Today, she is still irritable, easily agitated, delusional, ____ Barack Obama. ASSESSMENT AND PLAN: The patient is 62-year-old female who continues to be disorganized, disheveled, unable to ____ and will continue with the current medication regimen ____ delusional and disorganized thought process. JOB# [id number]
--- NOTE | 2017-10-20 11:34 | Internal Medicine Prog Note ---
Internal Medicine Subjective - Subjective Service Date: 10/20/17 Patient is:: awake Per staff patient has:: no adverse event, tolerating meds Internal Medicine Objective - Results Result Diagrams: 10/08/17 18:33 10/08/17 18:33 Recent Labs: Laboratory Last Values WBC 5.9 Th/cmm (4.8-10.8) D 10/08/17 18:33 RBC 5.45 Mil/cmm (3.80-5.10) H 10/08/17 18:33 Hgb 14.7 gm/dL (12-16) 10/08/17 18:33 Hct 46.7 % (41.0-60) 10/08/17 18:33 MCV 85.7 fl (81-100) 10/08/17 18:33 MCH 26.9 pg (27.0-31.0) L 10/08/17 18:33 MCHC Differential 31.4 pg (28.0-36.0) 10/08/17 18:33 RDW 14.2 % (11.5-20.0) 10/08/17 18:33 Plt Count 357 Th/cmm (150-400) 10/08/17 18:33 MPV 8.0 fl 10/08/17 18:33 Neutrophils % 50.4 % (40.0-80.0) 10/08/17 18:33 Lymphocytes % 32.5 % (20.0-50.0) 10/08/17 18:33 Monocytes % 13.9 % (2.0-10.0) H 10/08/17 18:33 Eosinophils % 2.5 % (0.0-5.0) 10/08/17 18:33 Basophils % 0.7 % (0.0-2.0) 10/08/17 18:33 Sodium 134 mEq/L (136-145) L 10/08/17 18:33 Potassium 3.9 mEq/L (3.5-5.1) 10/08/17 18:33 Chloride 98 mEq/L (98-107) 10/08/17 18:33 Carbon Dioxide 25.6 mEq/L (21.0-31.0) 10/08/17 18:33 Anion Gap 14.3 (7.0-16.0) 10/08/17 18:33 BUN 13 mg/dL (7-25) 10/08/17 18:33 Creatinine 0.6 mg/dL (0.6-1.2) 10/08/17 18:33 Est GFR ( Amer) > 60.0 ml/min (>90) 10/08/17 18:33 Est GFR (Non-Af Amer) > 60.0 ml/min 10/08/17 18:33 BUN/Creatinine Ratio 21.7 10/08/17 18:33 Glucose 92 mg/dL (70-105) 10/08/17 18:33 POC Glucose 97 MG/DL (70 - 105) 10/19/17 21:52 Calcium 9.3 mg/dL (8.6-10.3) 10/08/17 18:33 Total Bilirubin 0.3 mg/dL (0.3-1.0) 10/08/17 18:33 AST 16 U/L (13-39) 10/08/17 18:33 ALT 11 U/L (7-52) 10/08/17 18:33 Alkaline Phosphatase 69 U/L (34-104) 10/08/17 18:33 Total Protein 7.5 gm/dL (6.0-8.3) 10/08/17 18:33 Albumin 4.1 gm/dL (3.7-5.3) 10/08/17 18:33 Globulin 3.4 gm/dL 10/08/17 18:33 Albumin/Globulin Ratio 1.2 (1.0-1.8) 10/08/17 18:33 Triglycerides 67 mg/dL (<150) 10/08/17 18:33 Cholesterol 139 mg/dL (<200) 10/08/17 18:33 LDL Cholesterol Direct 75 mg/dL (75-193) 10/08/17 18:33 HDL Cholesterol 62 mg/dL (23-92) 10/08/17 18:33 TSH 1.23 uIU/ml (0.34-5.60) 10/08/17 18:33 Valproic Acid 67.9 ug/mL (50.0-100.0) 10/19/17 08:00 RPR NONREACTIVE (NONREACTIVE) 10/08/17 18:33 - Physical Exam Vitals and I&O: Vital Signs Temp 98.2 F 10/20/17 06:24 Pulse 68 10/20/17 08:26 Resp 19 10/20/17 06:24 BP 100/52 10/20/17 08:26 Pulse Ox 94 10/20/17 06:24 Intake & Output 10/19/17 10/20/17 10/20/17 18:59 06:59 18:59 Intake Total 1200 420 Balance 1200 420 Intake: Oral 1200 420 Other: # Voids 2 1 # Bowel Movements 0 Stool Characteristics Soft Formed Active Medications: Current Medications Al Hydrox/Mg Hydrox/Simethicone (Maalox) 30 ml PO Q6H PRN PRN Reason: Dyspepsia Stop: 12/07/17 21:42 Artificial Tears (Artificial Tears Ophth Soln) 1 drop EACH EYE BID [facility] Stop: 12/08/17 08:59 Last Admin: 10/20/17 08:23 Dose: 1 drop Aspirin (Aspirin Chewable) 81 mg PO DAILY [facility] Stop: 12/08/17 08:59 Last Admin: 10/20/17 08:24 Dose: 81 mg Calcium Carbonate (Os-Kennedy) 500 mg PO TID [facility] Stop: 12/08/17 08:59 Last Admin: 10/20/17 08:24 Dose: 500 mg Cholecalciferol (Vitamin D3) 2,000 iu PO DAILY [facility] Stop: 12/08/17 08:59 Last Admin: 10/20/17 08:24 Dose: 2,000 iu Divalproex Sodium (Depakote Sprinkle) 500 mg PO BID [facility] PRN Reason: Protocol Stop: 12/08/17 08:59 Last Admin: 10/20/17 08:24 Dose: 500 mg Docusate Sodium (Colace) 250 mg PO DAILY [facility] Stop: 12/08/17 08:59 Last Admin: 10/20/17 08:24 Dose: 250 mg Insulin Aspart (Novolog Insulin Sliding Scale) 0 units SUBQ ACHS [facility] PRN Reason: Protocol Stop: 12/08/17 07:29 Last Admin: 10/20/17 06:45 Dose: Not Given Insulin Detemir (Levemir Insulin) 29 units SUBQ QAM [facility] PRN Reason: Protocol Stop: 12/08/17 08:59 Last Admin: 10/20/17 08:25 Dose: Not Given Lisinopril (Zestril) 40 mg PO DAILY [facility] Stop: 12/08/17 08:59 Last Admin: 10/20/17 08:25 Dose: 40 mg Magnesium Hydroxide (Milk Of Magnesia) 30 ml PO DAILY PRN PRN Reason: GI DISTRESS Stop: 12/07/17 21:47 Metformin HCl (Glucophage) 850 mg PO TID [facility] Stop: 12/08/17 08:59 Last Admin: 10/20/17 08:26 Dose: 850 mg Multivitamins/Vitamin C (Theragran) 1 tab PO DAILY [facility] Stop: 12/08/17 08:59 Last Admin: 10/20/17 08:26 Dose: 1 tab Nifedipine (Procardia Xl) 60 mg PO DAILY [facility] Stop: 12/08/17 08:59 Last Admin: 10/20/17 08:26 Dose: 60 mg Quetiapine Fumarate (Seroquel) 25 mg PO BID [facility] PRN Reason: Protocol Stop: 12/09/17 08:59 Last Admin: 10/20/17 08:24 Dose: 25 mg Quetiapine Fumarate (Seroquel) 75 mg PO HS [facility] PRN Reason: Protocol Stop: 12/15/17 14:40 Last Admin: 10/19/17 21:15 Dose: 75 mg Simvastatin (Zocor) 40 mg PO QPM [facility] PRN Reason: Protocol Stop: 12/08/17 16:59 Last Admin: 10/19/17 16:38 Dose: 40 mg Trazodone HCl (Desyrel) 100 mg PO HS [facility] PRN Reason: Protocol Stop: 12/08/17 20:59 Last Admin: 10/19/17 21:15 Dose: 100 mg General: alert HEENT: NC/AT, PERRLA Neck: Supple Lungs: CTAB Extremities: excoriation Neurological: no change Internal Medicine Assmt/Plan - Assessment Assessment: DM,lupus; insomnia; hyperlipidemia; psychosis; dysphagia; schizophrenia; major depression; transient fracture hands; anxiety; bilateral below-knee amputations - Plan Plan: monitor glucose safety precuations continue current orders Nutritional Asmnt/Malnutr-PDOC - Dietary Evaluation Malnutrition Findings (Please click <Entered> for more info): Nutritional Asmnt/Malnutrition Start: 10/13/17 10: 20 Text: Status: Complete Freq: Document 10/13/17 10:20 MMRAMIRO (Rec: 10/13/17 10:44 MMRAMIRO [id number]) Nutritional Asmnt/Malnutrition Patient General Information Nutritional Screening Moderate Risk Diagnosis Psychosis NOS (Reason for visit) Pertinent Medical Hx/Surgical Hx DM, Lupus, insomnia, hyperlipidemia, psychosis, dysphagia, schizophrenia, major depression, transient fracture hands, anxiety, Bilateral Below-knee- amputations Subjective Information Patient was admitted from SNF. Patient in wheelchair d/t bilateral BKA. Patient eating lunch at time of visit. Current Diet Order/ Nutrition Support CCHO, ARACELY with chipped meat and thin liquids Patient / S.O Not Indicated Pertinent Medications maalox, Os-kennedy, Vitamin D3, Colace, Novolog, Levemir, MOM, Metformin, Theragran Pertinent Labs (10/08) Na 134, POC Glucose 66 -135 Nutritional Hx/Data Height 4 ft Height (Calculated Centimeters) 121.9 Current Weight (lbs) 98 lb Weight (Calculated Kilograms) 44.5 Weight (Calculated Grams) 05337.1 [place] Body Weight unable to calculate without height before amputation Body Mass Index (BMI) 29.9 Weight Status Overweight GI Symptoms GI Symptoms None Last BM NOne noted since admission Difficult in: None Food Allergies No Cultural/Ethnic/Hoahaoism Belief None indicated Usual diet at home Unknown Skin Integrity/Comment: Xiomara Krzysztof 18 Current %PO Good (75-100%) Estimated Nutritional Goals BEE in Kcals: Using Current wt Calories/Kcals/Kg 44.5kg Current body Weight Kcals Calculated ~6744-9513 kcal/day Protein: Using Current wt Protein g/k-1.2 gm/kg Protein Calculated 45-55 gm/day Fluid: ml ~3038-5204 ml/day (30-35 ml/kg ) Nutritional Problem 1. Problem Problem Altered nutrition related lab values related to Etiology 2 episodes of hypoglycemia, on insulin Signs/Symptoms: aeb POC glucose 66, 66 Intervention/Recommendation Comments 1. Continue 60 gm CCHO, ARACELY diet with chopped meats as tolerated by patient. 2. MD to continue to modify insulin regimen to prevent hypoglycemic episodes. Expected Outcomes/Goals Expected Outcomes/Goals Oral intake >75% of meals, Na and glucose normalizes, maintains skin integrity
--- NOTE | 2017-10-21 00:14 | Progress Notes ---
DATE: 10/20/2017 SUBJECTIVE: The patient remains symptomatic, confused. Remains perseverative, talking about "traveling" today. States she is going to go back to [place]. Ongoing disorganized thought process seems to be mumbling to self, responding to internal stimuli, tangential on exam. Medications reviewed. Sleeping fairly well. ASSESSMENT: The patient remains delusional, still bizarre, not safe for discharge. PLAN: We will continue to monitor. Medications reviewed. We will increase dosages of Seroquel at nighttime to 100 mg at bedtime to target her ongoing psychotic symptoms. We will monitor and follow up. [facility]# [id number]
[2017-10-21] MEDS: INSULIN ASPART SLIDING SCALE 100 UNITS/ML UNIT SUBQ SCH ×4 (06:55→21:50)
[2017-10-21] MEDS: Insulin Detemir 100 units/mL 10mL Vial SUBQ SCH (08:38)
[2017-10-21] MEDS: NIFEdipine 30 mg ER Tab PO SCH (08:39)
[2017-10-21] MEDS: Multivitamin Tab PO SCH (08:55)
[2017-10-21] MEDS: Aspirin 81mg Chewable Tab PO SCH (08:56)
[2017-10-21] MEDS: Polyvinyl Alcohol Ophth Soln 15 mL Bottle EACH EYE SCH ×3 (08:56→18:00)
--- NOTE | 2017-10-21 16:10 | General Progress Note ---
Subjective - Review of Systems Events since last encounter: patient delusional confused in no acute distress Objective - Results Result Diagrams: 10/08/17 18:33 10/08/17 18:33 Recent Labs: Laboratory Last Values WBC 5.9 Th/cmm (4.8-10.8) D 10/08/17 18:33 RBC 5.45 Mil/cmm (3.80-5.10) H 10/08/17 18:33 Hgb 14.7 gm/dL (12-16) 10/08/17 18:33 Hct 46.7 % (41.0-60) 10/08/17 18:33 MCV 85.7 fl (81-100) 10/08/17 18:33 MCH 26.9 pg (27.0-31.0) L 10/08/17 18:33 MCHC Differential 31.4 pg (28.0-36.0) 10/08/17 18:33 RDW 14.2 % (11.5-20.0) 10/08/17 18:33 Plt Count 357 Th/cmm (150-400) 10/08/17 18:33 MPV 8.0 fl 10/08/17 18:33 Neutrophils % 50.4 % (40.0-80.0) 10/08/17 18:33 Lymphocytes % 32.5 % (20.0-50.0) 10/08/17 18:33 Monocytes % 13.9 % (2.0-10.0) H 10/08/17 18:33 Eosinophils % 2.5 % (0.0-5.0) 10/08/17 18:33 Basophils % 0.7 % (0.0-2.0) 10/08/17 18:33 Sodium 134 mEq/L (136-145) L 10/08/17 18:33 Potassium 3.9 mEq/L (3.5-5.1) 10/08/17 18:33 Chloride 98 mEq/L (98-107) 10/08/17 18:33 Carbon Dioxide 25.6 mEq/L (21.0-31.0) 10/08/17 18:33 Anion Gap 14.3 (7.0-16.0) 10/08/17 18:33 BUN 13 mg/dL (7-25) 10/08/17 18:33 Creatinine 0.6 mg/dL (0.6-1.2) 10/08/17 18:33 Est GFR ( Amer) > 60.0 ml/min (>90) 10/08/17 18:33 Est GFR (Non-Af Amer) > 60.0 ml/min 10/08/17 18:33 BUN/Creatinine Ratio 21.7 10/08/17 18:33 Glucose 92 mg/dL (70-105) 10/08/17 18:33 POC Glucose 69 MG/DL (70 - 105) L 10/21/17 11:50 Calcium 9.3 mg/dL (8.6-10.3) 10/08/17 18:33 Total Bilirubin 0.3 mg/dL (0.3-1.0) 10/08/17 18:33 AST 16 U/L (13-39) 10/08/17 18:33 ALT 11 U/L (7-52) 10/08/17 18:33 Alkaline Phosphatase 69 U/L (34-104) 10/08/17 18:33 Total Protein 7.5 gm/dL (6.0-8.3) 10/08/17 18:33 Albumin 4.1 gm/dL (3.7-5.3) 10/08/17 18:33 Globulin 3.4 gm/dL 10/08/17 18:33 Albumin/Globulin Ratio 1.2 (1.0-1.8) 10/08/17 18:33 Triglycerides 67 mg/dL (<150) 10/08/17 18:33 Cholesterol 139 mg/dL (<200) 10/08/17 18:33 LDL Cholesterol Direct 75 mg/dL (75-193) 10/08/17 18:33 HDL Cholesterol 62 mg/dL (23-92) 10/08/17 18:33 TSH 1.23 uIU/ml (0.34-5.60) 10/08/17 18:33 Valproic Acid 67.9 ug/mL (50.0-100.0) 10/19/17 08:00 RPR NONREACTIVE (NONREACTIVE) 10/08/17 18:33 - Physical Exam Vitals and I&O: Vital Signs Temp 98.4 F 10/20/17 20:18 Pulse 83 10/21/17 09:51 Resp 20 10/21/17 09:51 BP 100/56 10/21/17 08:39 Pulse Ox 96 10/20/17 20:18 Intake & Output 10/20/17 10/21/17 10/21/17 18:59 06:59 18:59 Intake Total 1200 60 Balance 1200 60 Intake: Oral 1200 60 Other: # Voids 2 1 # Bowel Movements 0 Active Medications: Current Medications Al Hydrox/Mg Hydrox/Simethicone (Maalox) 30 ml PO Q6H PRN PRN Reason: Dyspepsia Stop: 12/07/17 21:42 Artificial Tears (Artificial Tears Ophth Soln) 1 drop EACH EYE BID [facility] Stop: 12/08/17 08:59 Last Admin: 10/21/17 08:56 Dose: 1 drop Aspirin (Aspirin Chewable) 81 mg PO DAILY [facility] Stop: 12/08/17 08:59 Last Admin: 10/21/17 08:56 Dose: 81 mg Calcium Carbonate (Os-Kenndey) 500 mg PO TID [facility] Stop: 12/08/17 08:59 Last Admin: 10/21/17 15:08 Dose: 500 mg Cholecalciferol (Vitamin D3) 2,000 iu PO DAILY [facility] Stop: 12/08/17 08:59 Last Admin: 10/21/17 08:56 Dose: 2,000 iu Divalproex Sodium (Depakote Sprinkle) 500 mg PO BID [facility] PRN Reason: Protocol Stop: 12/08/17 08:59 Last Admin: 10/21/17 08:55 Dose: 500 mg Docusate Sodium (Colace) 250 mg PO DAILY [facility] Stop: 12/08/17 08:59 Last Admin: 10/21/17 08:56 Dose: 250 mg Insulin Aspart (Novolog Insulin Sliding Scale) 0 units SUBQ ACHS [facility] PRN Reason: Protocol Stop: 12/08/17 07:29 Last Admin: 10/21/17 12:06 Dose: Not Given Insulin Detemir (Levemir Insulin) 29 units SUBQ QAM [facility] PRN Reason: Protocol Stop: 12/08/17 08:59 Last Admin: 10/21/17 08:38 Dose: Not Given Lisinopril (Zestril) 40 mg PO DAILY [facility] Stop: 12/08/17 08:59 Last Admin: 10/21/17 08:38 Dose: Not Given Magnesium Hydroxide (Milk Of Magnesia) 30 ml PO DAILY PRN PRN Reason: GI DISTRESS Stop: 12/07/17 21:47 Metformin HCl (Glucophage) 850 mg PO TID [facility] Stop: 12/08/17 08:59 Last Admin: 10/21/17 15:08 Dose: 850 mg Multivitamins/Vitamin C (Theragran) 1 tab PO DAILY [facility] Stop: 12/08/17 08:59 Last Admin: 10/21/17 08:55 Dose: 1 tab Nifedipine (Procardia Xl) 60 mg PO DAILY [facility] Stop: 12/08/17 08:59 Last Admin: 10/21/17 08:39 Dose: Not Given Quetiapine Fumarate (Seroquel) 25 mg PO BID [facility] PRN Reason: Protocol Stop: 12/09/17 08:59 Last Admin: 10/21/17 08:55 Dose: 25 mg Quetiapine Fumarate (Seroquel) 100 mg PO HS [facility] PRN Reason: Protocol Stop: 12/15/17 14:40 Last Admin: 10/20/17 20:41 Dose: 100 mg Simvastatin (Zocor) 40 mg PO QPM [facility] PRN Reason: Protocol Stop: 12/08/17 16:59 Last Admin: 10/20/17 16:55 Dose: 40 mg Trazodone HCl (Desyrel) 100 mg PO HS [facility] PRN Reason: Protocol Stop: 12/08/17 20:59 Last Admin: 10/20/17 20:40 Dose: 100 mg General: No acute distress HEENT: Atraumatic Neck: Supple, JVD, Thyromegaly Cardiovascular: Regular rate, Normal S1, Normal S2 Lungs: Clear to auscultation Assessment/Plan - Problem List Patient Problems: All Active Problems Dementia (Acute) F03.90 Diabetes (Acute) E11.9 Hyperlipidemia (Acute) E78.5 Lupus (Acute) L93.0 Schizophrenia (Acute) F20.9 Status post bilateral below knee amputation (Acute) Z89.512, Z89.511 - Plan Plan: as per psych will monitor Nutritional Asmnt/Malnutr-PDOC - Dietary Evaluation Malnutrition Findings (Please click <Entered> for more info): Nutritional Asmnt/Malnutrition Start: 10/13/17 10: 20 Text: Status: Complete Freq: Document 10/13/17 10:20 SHRUTI (Rec: 10/13/17 10:44 SHRUTI [email or web address]- [email or web address]) Nutritional Asmnt/Malnutrition Patient General Information Nutritional Screening Moderate Risk Diagnosis Psychosis NOS (Reason for visit) Pertinent Medical Hx/Surgical Hx DM, Lupus, insomnia, hyperlipidemia, psychosis, dysphagia, schizophrenia, major depression, transient fracture hands, anxiety, Bilateral Below-knee- amputations Subjective Information Patient was admitted from SNF. Patient in wheelchair d/t bilateral BKA. Patient eating lunch at time of visit. Current Diet Order/ Nutrition Support CCHO, ARACELY with chipped meat and thin liquids Patient / S.O Not Indicated Pertinent Medications maalox, Os-kennedy, Vitamin D3, Colace, Novolog, Levemir, MOM, Metformin, Theragran Pertinent Labs (10/08) Na 134, POC Glucose 66 -135 Nutritional Hx/Data Height 1.22 m Height (Calculated Centimeters) 121.9 Current Weight (lbs) 44.452 kg Weight (Calculated Kilograms) 44.5 Weight (Calculated Grams) 75254.1 [place] Body Weight unable to calculate without height before amputation Body Mass Index (BMI) 29.9 Weight Status Overweight GI Symptoms GI Symptoms None Last BM NOne noted since admission Difficult in: None Food Allergies No Cultural/Ethnic/Restoration Belief None indicated Usual diet at home Unknown Skin Integrity/Comment: Krzysztof [place] 18 Current %PO Good (75-100%) Estimated Nutritional Goals BEE in Kcals: Using Current wt Calories/Kcals/Kg 44.5kg Current body Weight Kcals Calculated ~0390-5265 kcal/day Protein: Using Current wt Protein g/k-1.2 gm/kg Protein Calculated 45-55 gm/day Fluid: ml ~0502-1612 ml/day (30-35 ml/kg ) Nutritional Problem 1. Problem Problem Altered nutrition related lab values related to Etiology 2 episodes of hypoglycemia, on insulin Signs/Symptoms: aeb POC glucose 66, 66 Intervention/Recommendation Comments 1. Continue 60 gm CCHO, ARACELY diet with chopped meats as tolerated by patient. 2. MD to continue to modify insulin regimen to prevent hypoglycemic episodes. Expected Outcomes/Goals Expected Outcomes/Goals Oral intake >75% of meals, Na and glucose normalizes, maintains skin integrity
[2017-10-22] MEDS: INSULIN ASPART SLIDING SCALE 100 UNITS/ML UNIT SUBQ SCH ×2 (06:29→11:34)
[2017-10-22] MEDS: Aspirin 81mg Chewable Tab PO SCH (08:56)
[2017-10-22] MEDS: Multivitamin Tab PO SCH (08:56)
[2017-10-22] MEDS: Polyvinyl Alcohol Ophth Soln 15 mL Bottle EACH EYE SCH (08:58)
[2017-10-22] MEDS: NIFEdipine 30 mg ER Tab PO SCH (08:59)
--- NOTE | 2017-10-22 09:05 | General Progress Note ---
Subjective - Review of Systems Events since last encounter: no change Objective - Results Result Diagrams: 10/08/17 18:33 10/08/17 18:33 Recent Labs: Laboratory Last Values WBC 5.9 Th/cmm (4.8-10.8) D 10/08/17 18:33 RBC 5.45 Mil/cmm (3.80-5.10) H 10/08/17 18:33 Hgb 14.7 gm/dL (12-16) 10/08/17 18:33 Hct 46.7 % (41.0-60) 10/08/17 18:33 MCV 85.7 fl (81-100) 10/08/17 18:33 MCH 26.9 pg (27.0-31.0) L 10/08/17 18:33 MCHC Differential 31.4 pg (28.0-36.0) 10/08/17 18:33 RDW 14.2 % (11.5-20.0) 10/08/17 18:33 Plt Count 357 Th/cmm (150-400) 10/08/17 18:33 MPV 8.0 fl 10/08/17 18:33 Neutrophils % 50.4 % (40.0-80.0) 10/08/17 18:33 Lymphocytes % 32.5 % (20.0-50.0) 10/08/17 18:33 Monocytes % 13.9 % (2.0-10.0) H 10/08/17 18:33 Eosinophils % 2.5 % (0.0-5.0) 10/08/17 18:33 Basophils % 0.7 % (0.0-2.0) 10/08/17 18:33 Sodium 134 mEq/L (136-145) L 10/08/17 18:33 Potassium 3.9 mEq/L (3.5-5.1) 10/08/17 18:33 Chloride 98 mEq/L (98-107) 10/08/17 18:33 Carbon Dioxide 25.6 mEq/L (21.0-31.0) 10/08/17 18:33 Anion Gap 14.3 (7.0-16.0) 10/08/17 18:33 BUN 13 mg/dL (7-25) 10/08/17 18:33 Creatinine 0.6 mg/dL (0.6-1.2) 10/08/17 18:33 Est GFR ( Amer) > 60.0 ml/min (>90) 10/08/17 18:33 Est GFR (Non-Af Amer) > 60.0 ml/min 10/08/17 18:33 BUN/Creatinine Ratio 21.7 10/08/17 18:33 Glucose 92 mg/dL (70-105) 10/08/17 18:33 POC Glucose 69 MG/DL (70 - 105) L 10/21/17 11:50 Calcium 9.3 mg/dL (8.6-10.3) 10/08/17 18:33 Total Bilirubin 0.3 mg/dL (0.3-1.0) 10/08/17 18:33 AST 16 U/L (13-39) 10/08/17 18:33 ALT 11 U/L (7-52) 10/08/17 18:33 Alkaline Phosphatase 69 U/L (34-104) 10/08/17 18:33 Total Protein 7.5 gm/dL (6.0-8.3) 10/08/17 18:33 Albumin 4.1 gm/dL (3.7-5.3) 10/08/17 18:33 Globulin 3.4 gm/dL 10/08/17 18:33 Albumin/Globulin Ratio 1.2 (1.0-1.8) 10/08/17 18:33 Triglycerides 67 mg/dL (<150) 10/08/17 18:33 Cholesterol 139 mg/dL (<200) 10/08/17 18:33 LDL Cholesterol Direct 75 mg/dL (75-193) 10/08/17 18:33 HDL Cholesterol 62 mg/dL (23-92) 10/08/17 18:33 TSH 1.23 uIU/ml (0.34-5.60) 10/08/17 18:33 Valproic Acid 67.9 ug/mL (50.0-100.0) 10/19/17 08:00 RPR NONREACTIVE (NONREACTIVE) 10/08/17 18:33 - Physical Exam Vitals and I&O: Vital Signs Temp 98.3 F 10/22/17 06:15 Pulse 89 10/22/17 08:59 Resp 19 10/22/17 06:15 BP 125/60 10/22/17 08:59 Pulse Ox 94 10/22/17 06:15 Intake & Output 10/21/17 10/22/17 10/22/17 18:59 06:59 18:59 Intake Total 1600 370 Balance 1600 370 Intake: Oral 1600 370 Other: # Voids 4 2 # Bowel Movements 1 1 Stool Characteristics Soft Formed Active Medications: Current Medications Al Hydrox/Mg Hydrox/Simethicone (Maalox) 30 ml PO Q6H PRN PRN Reason: Dyspepsia Stop: 12/07/17 21:42 Artificial Tears (Artificial Tears Ophth Soln) 1 drop EACH EYE BID [facility] Stop: 12/08/17 08:59 Last Admin: 10/22/17 08:58 Dose: 1 drop Aspirin (Aspirin Chewable) 81 mg PO DAILY [facility] Stop: 12/08/17 08:59 Last Admin: 10/22/17 08:56 Dose: 81 mg Calcium Carbonate (Os-Kennedy) 500 mg PO TID [facility] Stop: 12/08/17 08:59 Last Admin: 10/22/17 08:56 Dose: 500 mg Cholecalciferol (Vitamin D3) 2,000 iu PO DAILY [facility] Stop: 12/08/17 08:59 Last Admin: 10/22/17 08:54 Dose: 2,000 iu Divalproex Sodium (Depakote Sprinkle) 500 mg PO BID [facility] PRN Reason: Protocol Stop: 12/08/17 08:59 Last Admin: 10/22/17 08:55 Dose: 500 mg Docusate Sodium (Colace) 250 mg PO DAILY [facility] Stop: 12/08/17 08:59 Last Admin: 10/22/17 08:56 Dose: 250 mg Insulin Aspart (Novolog Insulin Sliding Scale) 0 units SUBQ ACHS [facility] PRN Reason: Protocol Stop: 12/08/17 07:29 Last Admin: 10/22/17 06:29 Dose: Not Given Insulin Detemir (Levemir Insulin) 29 units SUBQ QAM [facility] PRN Reason: Protocol Stop: 12/08/17 08:59 Last Admin: 10/21/17 08:38 Dose: Not Given Lisinopril (Zestril) 40 mg PO DAILY [facility] Stop: 12/08/17 08:59 Last Admin: 10/22/17 08:55 Dose: 40 mg Magnesium Hydroxide (Milk Of Magnesia) 30 ml PO DAILY PRN PRN Reason: GI DISTRESS Stop: 12/07/17 21:47 Metformin HCl (Glucophage) 850 mg PO TID [facility] Stop: 12/08/17 08:59 Last Admin: 10/22/17 08:56 Dose: 850 mg Multivitamins/Vitamin C (Theragran) 1 tab PO DAILY [facility] Stop: 12/08/17 08:59 Last Admin: 10/22/17 08:56 Dose: 1 tab Nifedipine (Procardia Xl) 60 mg PO DAILY [facility] Stop: 12/08/17 08:59 Last Admin: 10/22/17 08:59 Dose: 60 mg Quetiapine Fumarate (Seroquel) 25 mg PO BID [facility] PRN Reason: Protocol Stop: 12/09/17 08:59 Last Admin: 10/22/17 08:57 Dose: 25 mg Quetiapine Fumarate (Seroquel) 100 mg PO HS [facility] PRN Reason: Protocol Stop: 12/15/17 14:40 Last Admin: 10/21/17 21:41 Dose: 100 mg Simvastatin (Zocor) 40 mg PO QPM [facility] PRN Reason: Protocol Stop: 12/08/17 16:59 Last Admin: 10/21/17 18:01 Dose: Not Given Trazodone HCl (Desyrel) 100 mg PO HS [facility] PRN Reason: Protocol Stop: 12/08/17 20:59 Last Admin: 10/21/17 21:41 Dose: 100 mg General: No acute distress HEENT: Atraumatic Neck: Supple, JVD, Thyromegaly Cardiovascular: Regular rate, Normal S1, Normal S2 Lungs: Clear to auscultation Assessment/Plan - Problem List Patient Problems: All Active Problems Dementia (Acute) F03.90 Diabetes (Acute) E11.9 Hyperlipidemia (Acute) E78.5 Lupus (Acute) L93.0 Schizophrenia (Acute) F20.9 Status post bilateral below knee amputation (Acute) Z89.512, Z89.511 - Plan Plan: as per psych will monitor Nutritional Asmnt/Malnutr-PDOC - Dietary Evaluation Malnutrition Findings (Please click <Entered> for more info): Nutritional Asmnt/Malnutrition Start: 10/13/17 10: 20 Text: Status: Complete Freq: Document 10/13/17 10:20 MMULN (Rec: 10/13/17 10:44 [id number]) Nutritional Asmnt/Malnutrition Patient General Information Nutritional Screening Moderate Risk Diagnosis Psychosis NOS (Reason for visit) Pertinent Medical Hx/Surgical Hx DM, Lupus, insomnia, hyperlipidemia, psychosis, dysphagia, schizophrenia, major depression, transient fracture hands, anxiety, Bilateral Below-knee- amputations Subjective Information Patient was admitted from SNF. Patient in wheelchair d/t bilateral BKA. Patient eating lunch at time of visit. Current Diet Order/ Nutrition Support CCHO, ARACELY with chipped meat and thin liquids Patient / S.O Not Indicated Pertinent Medications maalox, Os-kennedy, Vitamin D3, Colace, Novolog, Levemir, MOM, Metformin, Theragran Pertinent Labs (10/08) Na 134, POC Glucose 66 -135 Nutritional Hx/Data Height 1.22 m Height (Calculated Centimeters) 121.9 Current Weight (lbs) 44.452 kg Weight (Calculated Kilograms) 44.5 Weight (Calculated Grams) 40922.1 Dwight Body Weight unable to calculate without height before amputation Body Mass Index (BMI) 29.9 Weight Status Overweight GI Symptoms GI Symptoms None Last BM NOne noted since admission Difficult in: None Food Allergies No Cultural/Ethnic/Amish Belief None indicated Usual diet at home Unknown Skin Integrity/Comment: Krzysztof Solano 18 Current %PO Good (75-100%) Estimated Nutritional Goals BEE in Kcals: Using Current wt Calories/Kcals/Kg 44.5kg Current body Weight Kcals Calculated ~1813-7606 kcal/day Protein: Using Current wt Protein g/k-1.2 gm/kg Protein Calculated 45-55 gm/day Fluid: ml ~7401-0065 ml/day (30-35 ml/kg ) Nutritional Problem 1. Problem Problem Altered nutrition related lab values related to Etiology 2 episodes of hypoglycemia, on insulin Signs/Symptoms: aeb POC glucose 66, 66 Intervention/Recommendation Comments 1. Continue 60 gm CCHO, ARACELY diet with chopped meats as tolerated by patient. 2. MD to continue to modify insulin regimen to prevent hypoglycemic episodes. Expected Outcomes/Goals Expected Outcomes/Goals Oral intake >75% of meals, Na and glucose normalizes, maintains skin integrity
[2017-10-22] MEDS: Insulin Detemir 100 units/mL 10mL Vial SUBQ SCH (10:52)
--- NOTE | 2017-10-22 11:22 | Progress Notes ---
DATE: 10/21/2017 SUBJECTIVE: The patient remains symptomatic, still confused, rambling, somewhat perseverative; however, she seems to be improved, less psychotic symptoms noted. No longer mumbling to self, seems to be tolerating current treatment regimen pretty well. She is currently on 100 of Seroquel at night, which seems to be helping her symptoms. She seems less fixated and delusional, making more sense, sleeping better. ASSESSMENT: The patient seems to be improving, more oriented and less psychotic. PLAN: We will continue to monitor. Continue Seroquel at current dose, given recent dose increase and monitor for any side effects. JOB# [id number]
--- NOTE | 2017-10-23 06:20 | Discharge Summary ---
DATE OF DISCHARGE: 10/22/2017 FINAL DIAGNOSIS AND PRIMARY DIAGNOSIS: Chronic paranoid schizophrenia with acute exacerbation. REASON FOR HOSPITALIZATION: The patient was admitted to the hospital from [facility] because of increased agitation and irritability. HOSPITAL COURSE: The patient was extremely agitated and in angry and in irritable mood upon admission. She also had difficult time following any directions. The patient also was having episodes of anger with severe mood swings. The patient on the other hand started to comply with taking her medications and the patient denied any side effects of medications. ASSESSMENT: Aggression. Physical examination of the patient basically showed no major medical problems. Blood workup was also basically within normal. AFTER-DISCHARGE PLANS: The patient discharged from the hospital and went to [facility] with plans to follow her there. EXPECTED OUTCOME AFTER DISCHARGE: Fair if the patient continue to take psychotropic medications and follow up with discharge plans. JOB# [id number]
[2017-10-23] MEDS ORDERED: Insulin Detemir 100 units/mL 10mL Vial SUBQ SCH (09:00)
== END 2017-10-22 14:30 | disposition home or self-care (01) | DRG 885 ==
LOC: ER 18:10 → GERO 20:30
PROVIDERS: ADMIT Psychiatry & Neurology Psychiatry; ATTEND Psychiatry & Neurology Psychiatry
DX: F25.0 Schizoaffective disorder, bipolar type (principal); F03.91 Unspecified dementia, unspecified severity, with behavioral disturbance; M32.9 Systemic lupus erythematosus, unspecified; R13.10 Dysphagia, unspecified; E11.9 Type 2 diabetes mellitus without complications; G47.00 Insomnia, unspecified; F41.9 Anxiety disorder, unspecified; F32.9 Major depressive disorder, single episode, unspecified; E78.5 Hyperlipidemia, unspecified; Z89.512 Acquired absence of left leg below knee; Z89.511 Acquired absence of right leg below knee; Z79.82 Long term (current) use of aspirin; Z79.4 Long term (current) use of insulin; Z79.899 Other long term (current) drug therapy
CPT/HCPCS: 36415-UA; 80053-TC; 80061-TC; 80164-TC; 82948-90; 84443-TC; 85025-TC; 86592-TC; G0410; J1815; Z7610

== ENCOUNTER 2018-05-21 18:11 | Inpatient (IN) | payer MEDICARE, OTHER ==
--- NOTE | 2018-05-21 20:03 | ED Physician Chart ---
ED Chief Complaint/HPI - Patient Information Date Seen:: 05/21/18 Time Seen:: 19:49 Chief Complaint:: agitation History of Present Illness:: 63 yr old bf with schizophrenia dementia dm ctx hands bilat bnkas [facility] agitation anxiety pt not following many commands and difficult to comprehend Allergies:: Allergies Allergy/AdvReac Type Severity Reaction Status Date / Time No Known Allergies Allergy Verified 02/28/17 16:15 Vitals:: Vital Signs - 8 hr 05/21/18 18:29 Temp 98.7 F HR 80 RR 16 BP 136/78 O2 Sat % 97 ED Review of Systems - Review of Systems General/Constitutional: No fever, No chills, No weight loss, No weakness, No diaphoresis, No edema, No loss of appetite Skin: No skin lesions, No rash, No bruising Head: No headache, No light-headedness Eyes: No loss of vision, No pain, No diplopia ENT: No earache, No nasal drainage, No sore throat, No tinnitus Neck: No neck pain, No swelling, No thyromegaly, No stiffness, No mass noted Cardio Vascular: No chest pain, No palpitations, No PND, No orthopnea, No edema Pulmonary: No SOB, No cough, No sputum, No wheezing GI: No nausea, No vomiting, No diarrhea, No pain, No melena, No hematochezia, No constipation, No hematemesis G/U: No dysuria, No frequency, No hematuria Musculoskeletal: Bone or joint pain (ctxs bilat hands and bilat BKA) Endocrine: No polyuria, No polydipsia Psychiatric: Prior psych history, Depression, Anxiety Hematopoietic: No bruising, No lymphadenopathy Allergic/Immuno: No urticaria, No angioedema Neurological: No syncope, No focal symptoms, No weakness, No paresthesia, No headache, No seizure, No dizziness, No confusion, No vertigo ED Past Medical History - Past Medical History Obtainable: No Past Medical History: CAD, Other (ANXIETY BIPOLAR DEPRESSION) Family Medical History - Family Member Mother History Unknown: Yes Ethnicity: Non- Living Status: ED Physical Exam - Physical Examination General/Constitutional: Well-developed, well-nourished Other Head comments:: BILATERAL CLAW HANDS BILATERAL BKA Eyes: Lids, conjuctiva normal Skin: Nl inspection ENMT: External ears, nose nl Neck: Nontender Respiratory: Nl effort/Exclusion Cardio Vascular: No murmur, gallop, rubs : No CVA tenderness Misc: No paraspinal tenderness ED Assessment - Assessment General Assessment: AGITATION ANXIETY ED Septic Shock - . Is Septic Shock (SBP<90, OR Lactate>4 mmol\L) present?: No - <6hrs of presentation: Vital Signs: Vital Signs - 8 hr 05/21/18 18:29 Temp 98.7 F HR 80 RR 16 BP 136/78 O2 Sat % 97 ED Reassessment (Disposition) - Diagnosis Diagnosis:: AGITATION ANXIETY - Patient Disposition Discharge/Transfer:: Acute Care w/in this hosp Condition at Disposition:: Unchanged
[2018-05-21 20:08] LABS: % BASOPHILS 0.9 % (0.0-2.0); % EOSINOPHILS 2.7 % (0.0-5.0); % LYMPHOCYTES 30.8 % (20.0-50.0); % MONOCYTES 12.4 % (2.0-10.0); % NEUTROPHILS 53.2 % (40.0-80.0); BASOPHILE ABSOLUTE 0.1 Th/cumm (0-0.2); EOSINOPHILE ABSOLUTE 0.2 Th/cmm (0.1-0.4); HEMOGLOBIN 14.5 gm/dL (12-16); MEAN CELL VOLUME 82.8 fl (81-100); MEAN CORPUSCULAR HEMOGLOBIN 27.3 pg (27.0-31.0); MEAN PLATELET VOLUME 7.8 fl; MONOCYTE ABSOLUTE 0.8 Th/cmm (0.3-1.0); NEUTROPHILE ABSOLUTE 3.3 Th/cmm (1.8-8.0); PLATELET COUNT 341 Th/cmm (150-400); RED BLOOD COUNT 5.31 Mil/cmm (3.80-5.10); WHITE BLOOD COUNT 6.4 Th/cmm (4.8-10.8)
[2018-05-21 20:23] LABS: ALBUMIN 3.7 gm/dL (3.7-5.3); ALKALINE PHOSPHATASE 79 U/L (34-104); ANION GAP 10.3 (7.0-16.0); BILIRUBIN,TOTAL 0.2 mg/dL (0.3-1.0); BUN - UREA NITROGEN 9 mg/dL (7-25); CALCIUM SERUM 9.4 mg/dL (8.6-10.3); CARBON DIOXIDE 27.9 mEq/L (21.0-31.0); CHLORIDE 98 mEq/L (98-107); CREATININE - SERUM 0.6 mg/dL (0.6-1.2); GFR AFRICAN-AMERICAN > 60.0 ml/min (>90); GFR NON AFRICAN-AMERICAN > 60.0 ml/min; GLUCOSE 108 mg/dL (70-105); POTASSIUM SERUM 4.2 mEq/L (3.5-5.1); SGOT 16 U/L (13-39); SGPT/ALT 10 U/L (7-52); SODIUM SERUM 132 mEq/L (136-145); TOTAL PROTEIN,SERUM 7.4 gm/dL (6.0-8.3)
[2018-05-21 22:27] VITALS: BP 145/70
[2018-05-21] MEDS ORDERED: Magnesium Hydroxide (MOM) 30 mL UDC PO SCH (23:45)
[2018-05-22] MEDS ORDERED: Magnesium Hydroxide (MOM) 30 mL UDC PO ONE (00:30)
[2018-05-22] MEDS ORDERED: Magnesium Hydroxide (MOM) 30 mL UDC PO PRN ×2 (01:11→01:17)
--- NOTE | 2018-05-22 08:40 | Diagnostic Imaging Report ---
CHEST X-RAY: AP view INDICATION: Shortness of breath COMPARISON: 02/28/2017 FINDINGS: Mild congestive changes are seen in the left basal density. Low lung volumes are noted. Cardiomegaly is noted. Right basal atelectasis is noted. IMPRESSION: Mild congestive changes and left basal density which may be due to combination of small left effusion and left basal infiltrates. Cardiomegaly.
[2018-05-22] MEDS ORDERED: Non-Formulary Item 1 EA (Cranberry Fruit Extract [Cranberry] 425 MG) PO SCH (09:00)
[2018-05-22] MEDS: NIFEdipine 30 mg ER Tab PO SCH (09:14)
[2018-05-22] MEDS: Multivitamin Tab PO SCH (09:15)
[2018-05-22] MEDS: Aspirin 81mg Chewable Tab PO SCH (09:15)
--- NOTE | 2018-05-22 13:00 | Psychiatric Evaluation ---
DATE OF SERVICE: 05/22/2018 IDENTIFYING INFORMATION: This is a 63-year-old female. CHIEF COMPLAINT: No answer. HISTORY OF PRESENT ILLNESS: The patient is a known case of schizophrenia, dementia, diabetes mellitus, contractures of her hands, bilateral below knee amputation, came from [facility] because of agitation and anxiety, not following many commands and she is difficult to understand. When I talked to her, she was on a wheelchair. She was unable to participate in meaningful conversation. She told me she has a girl, 50 years of age and she told me she . Unable to tell me where she lives or why she is here. She believes she lives on her own in [place], very poor historian. PAST PSYCHIATRIC HISTORY: Schizophrenia and dementia. MEDICAL HISTORY: No known drug allergies. MEDICATIONS: The patient has multiple medical issues. She has bilateral contractures of both of her hands. She has below knee amputation of both legs. She is on a wheelchair. She is diabetic with high lipids. The patient has been on trazodone and Seroquel. FAMILY AND SOCIAL HISTORY: The patient reported that she is single, never , later told me she has a daughter a little later she told me she passed. She said she has high school, unable to tell me what she did for living. Unable to tell me if there is any family history of psychotic disorder. MENTAL STATUS EXAMINATION: The patient was appropriately dressed, not very well groomed. She was in a wheelchair. She was alert. She was able to tell me her age being 63. However, when asked about her birthday, she was able to tell me it was 1955 though at the beginning, she said that July, she changed it. She denies any auditory or visual hallucination; however, she is not a very good historian. Unable to tell me the date, why she is here. She believes she lives by herself at home, very poor insight. MENTAL STATUS EXAMINATION: The patient denies any auditory or visual hallucinations. Denies any intent to harm herself or anybody. However, she is unpredictable, impulsive, easily agitated. Was unable to tell me how much she is sleeping or eating. Insight and judgment is impaired. Her long-term is good. Short term memory is poor. Can tell me her age, but not why she is here. Does not know the president of [facility]. IMPRESSION: AXIS I: Schizoaffective disorder, bipolar type and dementia. MEDICAL DIAGNOSES: As per medical doctor. Her assets, she is accepting treatment. Negative poor coping skills. INITIAL TREATMENT PLAN: The patient was started back on the medication. We will do group therapy, milieu therapy, and individual therapy. ESTIMATED LENGTH OF STAY: 7-10 days. DISCHARGE CRITERIA: Decreased psychosis, agitation. After discharge, outpatient treatment. JOB# [id number]
[2018-05-23] MEDS: Aspirin 81mg Chewable Tab PO SCH (08:55)
[2018-05-23] MEDS: Multivitamin Tab PO SCH (08:56)
[2018-05-23] MEDS: NIFEdipine 30 mg ER Tab PO SCH (08:57)
--- NOTE | 2018-05-23 21:24 | Progress Notes ---
DATE: 05/23/2018 SUBJECTIVE: The patient with history of schizophrenia, dementia, diabetes, contractures of the hand and not making much sense. I tried to talk to her. She does not really answer in any meaningful way. The patient also with agitation, brim raiser awakenings, talking nonsense, delusional, impulsive, unpredictable, easily agitated, per staff. Medications were noted. ASSESSMENT: The patient is confused, disoriented, poor historian. Continue Seroquel. She remains impulsive, unpredictable, continue Depakote. Check her Depakote level over the next couple of days. JOB# [id number]
--- NOTE | 2018-05-23 21:54 | History & Physical ---
ADMIT DATE: REASON FOR ADMISSION: Psychiatric disorders. HISTORY OF PRESENT ILLNESS: A 63-year-old female with underlying history of diabetes, hypertension, hyperlipidemia, mental disorder, status post bilateral BKA, admitted to [facility] by Dr. Dalton. Dr. Dalton requested medical H and P on this patient. The patient at the time of evaluation appears very confused, no reported concern per nursing staff, except the patient was refusing to take any of her medications. PAST MEDICAL HISTORY: Hypertension, hyperlipidemia, diabetes, mental disorder. PAST SURGICAL HISTORY: Bilateral BKA. ALLERGIES: No known drug allergy. REVIEW OF SYSTEMS: No reported fever, no diarrhea, no vomiting, no breathing issues, no chest pain, no headache, or any other concern. PHYSICAL EXAMINATION: VITAL SIGNS: Temperature is 98.8, pulse 86, respiratory rate 18, blood pressure 106/57, oxygen saturation 97% on room air. Pain 0/10. GENERAL APPEARANCE: The patient does not seem in acute distress. HEART: S1, S2 normal. LUNGS: Clear to auscultation. ABDOMEN: Soft. NEUROLOGIC: Little bit confused. EXTREMITIES: Bilateral lower extremity BKA noted. AVAILABLE LABORATORY DATA: Has been reviewed. ASSESSMENT: 1. Diabetes. 2. Hyperglycemia. 3. Hypertension. 4. Mental disorder. PLAN: The patient will be continued on current medications. Monitor vital signs. Monitor blood sugars. Psych management per psychiatrist. The patient is medically stable [facility]# [id number]
--- NOTE | 2018-05-24 07:29 | Progress Notes ---
DATE: 05/24/2018 SUBJECTIVE: The patient not sleeping, waking up very early, talks nonsense, easily agitated, impulsive, making statements to me that do not make any sense, disjointed symptoms, aggressive, restless, hyperverbal, ongoing behaviors, believing that metformin is a pale. ASSESSMENT: The patient bizarre, delusional, not sleeping well. PLAN: We will continue to monitor. I will be increasing her Seroquel to 150 mg at night time due to her ongoing psychotic symptoms disorderly and unruly behaviors. JOB# [id number]
[2018-05-24] MEDS: Multivitamin Tab PO SCH (09:26)
[2018-05-24] MEDS: Aspirin 81mg Chewable Tab PO SCH (09:27)
[2018-05-24] MEDS: NIFEdipine 30 mg ER Tab PO SCH (09:29)
[2018-05-25] MEDS: Multivitamin Tab PO SCH (09:53)
[2018-05-25] MEDS: Aspirin 81mg Chewable Tab PO SCH (09:54)
[2018-05-25] MEDS: NIFEdipine 30 mg ER Tab PO SCH (09:56)
--- NOTE | 2018-05-26 00:51 | Progress Notes ---
DATE: 05/25/2018 SUBJECTIVE: Case was discussed with staff of the patient. The patient is delusional, agitated, paranoid, continues to have poor insight, continues to be unable to make safe plan for self-care, needing redirection. Continuously making nonsensical statements, very poor insight. No side effects of the medication, no sedation, no nausea, and no extrapyramidal symptoms. Lab work showed high ____ and high monocyte. The rest within normal range. Chemistry panel with low sodium and blood sugar at 108, blood sodium 132, ____. The rest of the chemistry panel within normal range. PLAN: We will continue outpatient group therapy, milieu therapy, and adjust the medications as needed. JOB# [id number]
[2018-05-26] MEDS: Multivitamin Tab PO SCH ×2 (08:11→08:19)
[2018-05-26] MEDS: NIFEdipine 30 mg ER Tab PO SCH ×2 (08:11→08:19)
[2018-05-26] MEDS: Aspirin 81mg Chewable Tab PO SCH ×2 (08:13→08:19)
--- NOTE | 2018-05-26 21:37 | Progress Notes ---
DATE: 05/26/2018 Case was discussed with staff of the patient, reviewed records. The patient continues to be rambling, continues to have poor insight, continues to be loud at times, repeating an address for unknown reason. When I asked her questions, she is unable to participate. She is compliant with the medication with no side effects, no sedation, no nausea and no extrapyramidal symptoms. Her lab work shows her CBC with high hemoglobin and high monocyte. The rest within normal range. Chemistry panel with low sodium, high blood sugar, low total bilirubin. The rest within normal range. I will be checking her Depakote level. Also that would help determine the level and determine if need to be adjusted and determine if she is taking medications or not. I asked the staff to make sure the patient is compliant with the medication and so far no side effects, no sedation, no nausea, no extrapyramidal symptoms. We will continue to work with the patient in group therapy, milieu therapy, adjust medication as needed. JOB# [id number]
[2018-05-27] MEDS: NIFEdipine 30 mg ER Tab PO SCH (09:34)
[2018-05-27] MEDS: Multivitamin Tab PO SCH (09:34)
[2018-05-27] MEDS: Aspirin 81mg Chewable Tab PO SCH (09:34)
--- NOTE | 2018-05-27 20:51 | General Progress Note ---
Subjective - Review of Systems Service Date: 05/27/18 Subjective: Patient seen and examined doing ok awake confused Objective - Results Result Diagrams: 05/21/18 20:00 05/21/18 20:00 Recent Labs: Laboratory Last Values WBC 6.4 Th/cmm (4.8-10.8) 05/21/18 20:00 RBC 5.31 Mil/cmm (3.80-5.10) H 05/21/18 20:00 Hgb 14.5 gm/dL (12-16) 05/21/18 20:00 Hct 44.0 % (41.0-60) 05/21/18 20:00 MCV 82.8 fl (81-100) 05/21/18 20:00 MCH 27.3 pg (27.0-31.0) 05/21/18 20:00 MCHC Differential 33.0 pg (28.0-36.0) 05/21/18 20:00 RDW 15.0 % (11.5-20.0) 05/21/18 20:00 Plt Count 341 Th/cmm (150-400) 05/21/18 20:00 MPV 7.8 fl 05/21/18 20:00 Neutrophils % 53.2 % (40.0-80.0) 05/21/18 20:00 Lymphocytes % 30.8 % (20.0-50.0) 05/21/18 20:00 Monocytes % 12.4 % (2.0-10.0) H 05/21/18 20:00 Eosinophils % 2.7 % (0.0-5.0) 05/21/18 20:00 Basophils % 0.9 % (0.0-2.0) 05/21/18 20:00 Sodium 132 mEq/L (136-145) L 05/21/18 20:00 Potassium 4.2 mEq/L (3.5-5.1) 05/21/18 20:00 Chloride 98 mEq/L (98-107) 05/21/18 20:00 Carbon Dioxide 27.9 mEq/L (21.0-31.0) 05/21/18 20:00 Anion Gap 10.3 (7.0-16.0) 05/21/18 20:00 BUN 9 mg/dL (7-25) 05/21/18 20:00 Creatinine 0.6 mg/dL (0.6-1.2) 05/21/18 20:00 Est GFR ( Amer) > 60.0 ml/min (>90) 05/21/18 20:00 Est GFR (Non-Af Amer) > 60.0 ml/min 05/21/18 20:00 BUN/Creatinine Ratio 15.0 05/21/18 20:00 Glucose 108 mg/dL (70-105) H 05/21/18 20:00 Calcium 9.4 mg/dL (8.6-10.3) 05/21/18 20:00 Total Bilirubin 0.2 mg/dL (0.3-1.0) L 05/21/18 20:00 AST 16 U/L (13-39) 05/21/18 20:00 ALT 10 U/L (7-52) 05/21/18 20:00 Alkaline Phosphatase 79 U/L (34-104) 05/21/18 20:00 Total Protein 7.4 gm/dL (6.0-8.3) 05/21/18 20:00 Albumin 3.7 gm/dL (3.7-5.3) 05/21/18 20:00 Globulin 3.7 gm/dL 05/21/18 20:00 Albumin/Globulin Ratio 1.0 (1.0-1.8) 05/21/18 20:00 Valproic Acid 59.1 ug/mL (50.0-100.0) 05/26/18 11:22 - Physical Exam Vitals and I&O: Vital Signs Temp 97.8 F 05/27/18 14:00 Pulse 86 05/27/18 14:00 Resp 20 05/27/18 14:00 BP 117/76 05/27/18 14:00 Pulse Ox 97 05/27/18 14:00 Intake & Output 05/27/18 05/27/18 05/28/18 06:59 18:59 06:59 Intake Total 240 1000 Balance 240 1000 Intake: Oral 240 1000 Other: # Voids 3 3 # Bowel Movements 1 0 Active Medications: Current Medications Acetaminophen (Tylenol) 650 mg PO Q6H PRN PRN Reason: mild pain Stop: 07/20/18 23:48 Aspirin (Aspirin Chewable) 81 mg PO DAILY JEREMI Stop: 07/21/18 08:59 Last Admin: 05/27/18 09:34 Dose: 81 mg Cholecalciferol (Vitamin D3) 2,000 iu PO DAILY [facility] Stop: 07/21/18 08:59 Last Admin: 05/27/18 09:32 Dose: 2,000 iu Divalproex Sodium (Depakote Sprinkle) 500 mg PO BID JEREMI; Protocol Stop: 07/22/18 08:59 Last Admin: 05/27/18 17:30 Dose: 500 mg Docusate Sodium (Colace) 250 mg PO DAILY JEREMI Stop: 07/21/18 08:59 Last Admin: 05/27/18 09:34 Dose: 250 mg Lisinopril (Zestril) 40 mg PO DAILY [facility] Stop: 07/21/18 08:59 Last Admin: 05/27/18 09:32 Dose: 40 mg Lorazepam (Ativan) 0.5 mg PO Q6HR PRN; Protocol PRN Reason: Agitation Stop: 07/25/18 19:14 Magnesium Hydroxide (Milk Of Magnesia) 30 ml PO HS PRN PRN Reason: Constipation Stop: 07/21/18 01:10 Metformin HCl (Glucophage) 850 mg PO TIDWM JEREMI Stop: 07/21/18 07:59 Last Admin: 05/27/18 17:30 Dose: 850 mg Multivitamins/Vitamin C (Theragran) 1 tab PO DAILY JEREMI Stop: 07/21/18 08:59 Last Admin: 05/27/18 09:34 Dose: 1 tab Nifedipine (Procardia Xl) 60 mg PO DAILY JEREMI Stop: 07/21/18 08:59 Last Admin: 05/27/18 09:34 Dose: 60 mg Quetiapine Fumarate (Seroquel) 150 mg PO HS JEREMI; Protocol Stop: 07/23/18 20:59 Last Admin: 05/27/18 20:39 Dose: 150 mg Simvastatin (Zocor) 40 mg PO QPM JEREMI; Protocol Stop: 07/21/18 16:59 Last Admin: 05/27/18 17:30 Dose: 40 mg Trazodone HCl (Desyrel) 100 mg PO HS JEREMI; Protocol Stop: 07/22/18 20:59 Last Admin: 05/27/18 20:39 Dose: 100 mg Zolpidem Tartrate (Ambien) 5 mg PO HS PRN PRN Reason: Insomnia Stop: 07/25/18 19:15 Last Admin: 05/27/18 20:39 Dose: 5 mg Cardiovascular: Regular rate Lungs: Clear to auscultation Assessment/Plan - Assessment Assessment: DM II HTN HYPERLIPIDEMIA PSYCH DISORDER - Plan Plan: Continue current treatment Monitor vitals Fall precaution Skin care Plan of care discussed with the nursing staff Nutritional Asmnt/Malnutr-PDOC - Dietary Evaluation Malnutrition Findings (Please click <Entered> for more info): Nutritional Asmnt/Malnutrition Start: 05/27/18 15: 13 Text: Status: Complete Freq: Protocol: Document 05/27/18 15:13 LCHENG (Rec: 05/27/18 15:26 LCHENG [email or web address]) Nutritional Asmnt/Malnutrition Patient General Information Nutritional Screening Moderate Risk Diagnosis psychosis Pertinent Medical Hx/Surgical Hx DM, hyperglycemia, hypertension, mental disorder Subjective Information Pt seen on wheelchair in hallway at time of visit, talking, confused, not able to understand. Per EMR, PO intake 75%. ` Current Diet Order/ Nutrition Support CCHO Pertinent Medications Vit D3, colace, glucophage, theragran, seroquel Pertinent Labs 05/21 Na 132, glucose 108 Nutritional Hx/Data Height 1.57 m Height (Calculated Centimeters) 157.5 Current Weight (lbs) 44.452 kg Weight (Calculated Kilograms) 44.5 Weight (Calculated Grams) 68979.1 Hope Body Weight 110 Body Mass Index (BMI) 17.9 GI Symptoms GI Symptoms None Last BM 05/27 Difficult in: None Skin Integrity/Comment: intact Current %PO Good (75-100%) Estimated Nutritional Goals BEE in Kcals: Using Current wt Calories/Kcals/Kg 30-35 Kcals Calculated 2485-8959 Protein: Using Current wt Protein g/k.2 Protein Calculated 54 Fluid: ml 1350-1400ml (1ml/kcal) Nutritional Problem No current Nutrition Prob Problem N/A Malnutrition Related to Morbid Obesity Malnutrition related to morbid obesity No Intervention/Recommendation Comments 1. Continue with current diet as ordered. 2. Monitor PO intake, wt, labs and skin integrity 3. F/U as low risk in 7 days, 06/03 Expected Outcomes/Goals Expected Outcomes/Goals 1. PO intake to meet at least 75% of nutritional needs. 2. Wt stability, skin to remain intact, labs to approach WNL.
--- NOTE | 2018-05-28 01:47 | Progress Notes ---
DATE: 05/27/2018 PSYCHIATRIC PROGRESS NOTE SUBJECTIVE: Chart reviewed and the patient interviewed. Also discussed the patient's condition with the staff and reviewed records and labs. The patient is still anxious. The patient also is still minimizing her issues and minimizing her problems. The patient also still has episodes of being loud and she is still at times unable to carry on coherent conversation and not able to answer appropriately. Otherwise, the patient is having slight decrease in her mood swings and not irritable. She also has been compliant with taking Depakote with no side effects. ASSESSMENT: The patient is slightly improved, but still has poor insight. TREATMENT PLAN: Continue to monitor her behavior and her condition closely. Also, continue adjusting psychotropic medications and working on behavioral modification. Also, continue to monitor Depakote blood level. JOB# [id number]
[2018-05-28] MEDS: Aspirin 81mg Chewable Tab PO SCH (08:54)
[2018-05-28] MEDS: Multivitamin Tab PO SCH (08:54)
[2018-05-28] MEDS: NIFEdipine 30 mg ER Tab PO SCH (08:55)
--- NOTE | 2018-05-29 07:34 | Progress Notes ---
DATE: 05/28/2018 PSYCHIATRIC PROGRESS NOTE SUBJECTIVE: Chart reviewed and the patient interviewed. Also discussed the patient's condition with the staff and reviewed records and labs. The patient is still actively hallucinating and actively psychotic. The patient is talking to pictures and talking to imaginary objects. She is also talking to herself. The patient also seems to be preoccupied and easily agitated. The patient also still seems to be suspicious. Also, easily irritable. Also, difficulty following directions. Otherwise, the patient is compliant with taking her medications with no side effects of medications. ASSESSMENT: The patient is still psychotic and agitated. TREATMENT PLAN: We will increase Seroquel to 175 mg at bedtime. Also, we will get Depakote blood level tomorrow and continue to follow up. JOB# [id number]
[2018-05-29] MEDS: NIFEdipine 30 mg ER Tab PO SCH (09:29)
[2018-05-29] MEDS: Aspirin 81mg Chewable Tab PO SCH (09:30)
[2018-05-29] MEDS: Multivitamin Tab PO SCH (09:30)
--- NOTE | 2018-05-29 22:34 | Progress Notes ---
DATE: 05/29/2018 SUBJECTIVE: Chart reviewed and the patient interviewed. Also discussed the patient's condition with the staff and reviewed records and labs. The patient is still anxious and the patient is still suspicious and paranoid. The patient also is still talking to self. She also seems to be preoccupied. The patient also is still easily agitated. Otherwise, the patient is compliant, taking her medications with no side effect of medications. ASSESSMENT: The patient is still psychotic. TREATMENT PLAN: Continue to monitor behavior and condition closely. Also, continue monitoring her psychotropic medications and will continue to follow up. [facility]# [id number]
[2018-05-30] MEDS: Multivitamin Tab PO SCH (08:25)
[2018-05-30] MEDS: Aspirin 81mg Chewable Tab PO SCH (08:26)
[2018-05-30] MEDS: NIFEdipine 30 mg ER Tab PO SCH (08:36)
--- NOTE | 2018-05-30 21:24 | Progress Notes ---
DATE: 05/30/2018 PROGRESS ON THE UNIT: Case was discussed with staff of the patient, reviewed records. The patient continues to be unpredictable, impulsive, intrusive. She continues to have poor insight. She continues to be unable to make safe plan for self-care, repeating herself, asking appropriate questions, keeps repeating the address. Her Depakote level came back at 59.1, which is within acceptable therapeutic range. Dr. Dalton increased her Seroquel to 175 mg at bedtime. She is also on trazodone 100 mg at bedtime and Depakote 500 mg twice a day with no side effects, no sedation, no nausea. PLAN: We will continue to work with the patient in group therapy and milieu therapy, adjust medications as needed. JOB# [id number]
[2018-05-31] MEDS: NIFEdipine 30 mg ER Tab PO SCH (09:03)
[2018-05-31] MEDS: Aspirin 81mg Chewable Tab PO SCH (09:04)
[2018-05-31] MEDS: Multivitamin Tab PO SCH (09:04)
--- NOTE | 2018-05-31 18:01 | Progress Notes ---
DATE: 05/31/2018 Case was discussed with staff of the patient, reviewed records. The patient continues to be unpredictable, impulsive, feet, intrusive, inappropriate, unable to make safe plan for self-care. Continues to be easily agitated at times, needing redirection. No side effects of the medication. No sedation, no nausea, no extrapyramidal symptoms. We will continue the patient in group therapy, milieu therapy . JOB# [id number]
--- NOTE | 2018-06-01 08:29 | Discharge Summary ---
DATE OF DISCHARGE: 06/01/2018 DATE OF DISCHARGE: 06/01/2018. FINAL DIAGNOSES AND PRIMARY DIAGNOSES: Schizoaffective disorder, mixed, bipolar type, with a moderate, with psychotic features. MEDICAL DIAGNOSIS: As per Dr. Hastings. REASON FOR HOSPITALIZATION: The patient was admitted to the hospital from [facility] because of increased agitation because of irritability. The patient was living with her medical illnesses including contractures and also amputation of below knee for both legs. HOSPITAL COURSE: The patient continued to be irritable and easily agitated. The patient also was restless. She also was interacting minimally with others. She also was slightly suspicious and paranoid. At the same time, the patient continued to take Depakote and Seroquel and Seroquel dose adjusted to 175 mg at bedtime. The patient was calmer and less agitated. She also is more cooperative with her treatment. PHYSICAL EXAMINATION: The patient was monitored closely by Dr. Hastings. Depakote blood level that was done on 05/26/2018 came back to be 59.1, which is within therapeutic levels. AFTER DISCHARGE PLANS: The patient discharged from the hospital and went back to [facility] with plan for follow her up there. EXPECTED OUTCOME AFTER DISCHARGE: Fair if the patient continued to take her medications and work on her impulsivity. JOB# [id number]
[2018-06-01] MEDS: Aspirin 81mg Chewable Tab PO SCH (08:54)
[2018-06-01] MEDS: NIFEdipine 30 mg ER Tab PO SCH (08:56)
[2018-06-01] MEDS: Multivitamin Tab PO SCH (08:58)
== END 2018-06-01 18:30 | DRG 885 ==
LOC: ER 18:11 → GERO 20:35
PROVIDERS: ADMIT Psychiatry & Neurology Psychiatry; ATTEND Psychiatry & Neurology Psychiatry
DX: F25.0 Schizoaffective disorder, bipolar type (principal); E11.65 Type 2 diabetes mellitus with hyperglycemia; F03.90 Unspecified dementia, unspecified severity, without behavioral disturbance, psychotic disturbance, mood disturbance, and anxiety; I10 Essential (primary) hypertension; I25.10 Atherosclerotic heart disease of native coronary artery without angina pectoris; F41.9 Anxiety disorder, unspecified; E78.5 Hyperlipidemia, unspecified; Z89.512 Acquired absence of left leg below knee; Z89.511 Acquired absence of right leg below knee
CPT/HCPCS: 36415-UA; 71045-TC; 80053-TC; 80164-TC; 85025-TC; 93005; Z7610